=== PATIENT | female | born 1945 | race Caucasian/White ===

== ENCOUNTER 2016-06-24 11:17 | Inpatient (IN) | payer OTHER ==
[~2016-06-24] VITALS: Ht 170.2 cm; Wt 149.7 kg
[2016-06-24 11:17] VITALS: BP 156/79
[~2016-06-24 11:17] MED LIST: ACET-9529 PO; AMPI500C49 PO; DOCU-67 PO; FURO-570 PO; HUM SUBQ; ISOS10TA9 PO; LAC PO; LISI10TA11 PO
--- NOTE | 2016-06-24 11:20 | NUR ---
1109--Patient was BIBA and taken to bed 03 via gurney per EMS. [place] [facility] at bedside.
--- NOTE | 2016-06-24 11:35 | NUR ---
BIBA DUE TO S/P FALL FROM HOME AND PT VERBALIZED I CANNT GET UP AND I HAVE WEAKNESS ON MY BOTH LEGS , PT AAO, PER PT SHE HAS HX DM, NEUROPATHY, SKIN WARM TO TOUCH RESP. EVEN AND UNLABORED, ON NON REBREATHER MASK O2 SAT 94 AT THIS TIMRE WITH O2, NOTED DRESSING ON BOTH LEGS, DENIES VOMITTING, FEVER, CP, PER PT SHE IS COUGHING AT HOME X2 WEEKS, NO PAIN NOTED AT THIS TIME.
--- NOTE | 2016-06-24 11:44 | NUR ---
Dr. Natarajan evaluating patient at bedside.
--- NOTE | 2016-06-24 11:55 | NUR ---
RT at bedside for ABG
[2016-06-24] MEDS ORDERED: NACL 0.9% 500 ML IV SCH (12:04)
--- NOTE | 2016-06-24 12:04 | NUR ---
NOTED REDNESS ON LEFT UNDER BREAST CLEANSE WITH WATER AND PAT DRY AND PUT DRY PILLOW CASE IN BETWEEN BREAST FOLDS, NOTED ALSO INTACT BLISTER ON BOTH RIGHT AND LEFT LEG AND NOTED BLANCHABLE REDNESS ON BOTH LEGS
[2016-06-24] MEDS ORDERED: LEVOFLOXACIN 500 MG/D5W PREMIX 100 ML IV ONE (12:05)
[2016-06-24] MEDS ORDERED: NACL 0.9% 500 ML IV ONE (12:05)
[2016-06-24] MEDS ORDERED: ALBUTEROL 0.083% 2.5 MG/3 ML NEBU INH ONE ×2 (12:10→14:20)
[2016-06-24] MEDS ORDERED: methylPREDNISolone SS 125 MG/2 ML VIAL IVP ONE (12:10)
[2016-06-24] MEDS ORDERED: IPRATROPIUM 0.02% 0.5 MG/2.5 ML NEBU INH ONE (12:10)
--- NOTE | 2016-06-24 12:10 | NUR ---
LAB AT BEDSIDE
--- NOTE | 2016-06-24 12:17 | NUR ---
ADMITTING DX: GENERALIZED WEAKNESS LOC AWAKE AND ALERT RESPONSIVE TO PHARMACY TEACHER VERBAL COMMANDS HOB GREATER THAN 30 DEGREES EDUCATION PROVIDED WITH ACKNOWLEDGEMNET ON HHN THERAPY AND RESPIRATORY DRUGS HHN THERAPY GIVEN ORDERED ENCORAGED DEEP BREATH AND COUGH DURING THERAPY SPONTANEOUS EXPECTORATION OF MODERATE THICK YELLOW/GREEN SECRETIONS TOLERATED HHN THERAPY WELL WITHOUT INCIDENT
--- NOTE | 2016-06-24 12:19 | NUR ---
XRAY AND RT AT BEDSIDE
[2016-06-24 12:25] LABS: BASOPHILS # (AUTO) 0.2 K/uL (0.00-0.22); BASOPHILS % (AUTO) 0.9 % (0.0-2.0); EOSINOPHILS # (AUTO) 0.2 K/uL (0-0.4); EOSINOPHILS % (AUTO) 0.9 % (0.0-4.0); HEMATOCRIT 26.4 % (36-48); HEMOGLOBIN 8.3 g/dL (12.0-16.0); LYMPHOCYTES # (AUTO) 1.4 K/uL (2.5-16.5); LYMPHOCYTES % (AUTO) 7.8 % (20.5-51.1); MEAN CORPUSCULAR HEMOGLOBIN 26 pg (27-31); MEAN CORPUSCULAR HGB CONC 32 g/dL (33-37); MEAN CORPUSCULAR VOLUME 81 fL (80-94); MONOCYTES # (AUTO) 0.9 K/uL (0.8-1.0); MONOCYTES % (AUTO) 4.8 % (1.7-9.3); NEUTROPHILS # (AUTO) 15.3 K/uL (1.8-7.7); NEUTROPHILS % (AUTO) 85.6 % (42.2-75.2); PLATELET COUNT (AUTO) 314 K/uL (140-450); RED BLOOD CELL COUNT(AUTO) 3.25 MIL/uL (4.20-5.40); RED CELL DISTRIBUTION WIDTH 16.7 % (11.6-13.7)
--- NOTE | 2016-06-24 12:25 | NUR ---
SPUTM COLLECTION IN PROGRESS Addendum: 06/24/16 at 1437 by JAIME Amendment undone in EDM - 06/24/16 at 1439 by JAIME SONNY/RODOLFO MADE AWARE OF SPUTUM SPECIMEN CUP WITH SAMPLE IN PATIENT'S RIGHT HAND Addendum: 06/24/16 at 1439 by JAIME SONNY/RODOLFO MADE AWARE WITH ACKNOWLEDGEMENT OF SPUTUM SPECIMEN CUP WITH SAMPLE IN PATIENT'S RIGHT HAND
--- NOTE | 2016-06-24 12:35 | NUR ---
POST HHN THERAPY TITRATED FIO2 TO 50%/15 LPM VIA VENTURI MASK SATURATION 96%-97% DR. JOHANN CAZARES NOTIFIED
[2016-06-24 12:41] LABS: LACTIC ACID 1.6 mmol/L (0.4-2.0)
--- NOTE | 2016-06-24 12:42 | NUR ---
FAMILY AT BEDSIDE, TALKING TO PT, PT AAO, ON O2 VIA FACE MASK AT 35% O2 SAT 98
[2016-06-24 12:48] LABS: BLOOD GAS PCO2 53.3 mmHg (20-50); BLOOD GAS PH 7.379 (7.35-7.45)
[2016-06-24 12:49] LABS: BLOOD GAS BASE EXCESS 4.8 mmol/L (-2.0-2.0); BLOOD GAS HCO3 30.8 mmol/L
[2016-06-24 12:50] LABS: BLOOD GAS O2 SAT% 80.5 % (92.0-98.5)
[2016-06-24 12:52] LABS: INR 1.4 (0.8-1.2); PARTIAL THROMBOPLASTIN TIME 27.6 secs (22-35.6)
--- NOTE | 2016-06-24 12:58 | NUR ---
NOTED BLANCHABLE REDNESS ON BOTH GROIN, CLEANSE WITH WATER, NOTED FOUL ODOR COMING FROM UNDER BREAST AND BOTH GROIN, PT AAO.
[2016-06-24] MEDS ORDERED: ONDANSETRON 4 MG/2 ML VIAL IVP PRN (13:00)
[2016-06-24] MEDS ORDERED: ACETAMINOPHEN 325 MG TAB PO PRN (13:00)
[2016-06-24] MEDS ORDERED: MORPHINE SULFATE 2 MG/ML SYR IVP PRN (13:00)
[2016-06-24] MEDS ORDERED: DOCUSATE SODIUM 100 MG GELCAP PO PRN (13:00)
[2016-06-24 13:17] LABS: ALBUMIN 2.5 g/dL (3.4-5.0); ANION GAP 10.7 (8-16); CALCIUM 8.8 mg/dL (8.5-10.1); CARBON DIOXIDE 32.4 mmol/L (21-32); CREATININE 1.6 mg/dL (0.6-1.3); POTASSIUM 4.1 mmol/L (3.5-5.1); TOTAL BILIRUBIN 0.5 mg/dL (0.0-1.0); TOTAL PROTEIN, SERUM 7.1 g/dL (6.4-8.2)
--- NOTE | 2016-06-24 13:54 | NUR ---
DR. CAZARES AWARE OF THE RESULT OF URINE DIPSTICK AND PREG
[2016-06-24 14:09] LABS: BILIRUBIN,URINE 1+ (NEGATIVE); BLOOD, URINE 3+ (NEGATIVE); COLOR,URINE YELLOW (YELLOW); LEUKOCYTE ESTERASE ,URINE NEGATIVE (NEGATIVE); NITRITE, URINE NEGATIVE (NEGATIVE); PH,URINE 5.5 (5.0-9.0); PROTEIN,URINE 3+ (NEGATIVE); UGLUCOSE TRACE (NEGATIVE)
[2016-06-24 14:12] LABS: APPEARANCE,URINE CLEAR (CLEAR)
[2016-06-24 14:21] LABS: AMPHETAMINE, URINE NEG. ng/ml (NEG <=1000); BARBITURATE, URINE NEG. ng/ml (NEG <=200); BENZODIAZEPINE, URINE NEG. ng/mL (NEG <=200); CANNABINOID, URINE NEG. ng/mL (NEG <=50); COCAINE, URINE NEG. ng/mL (NEG <=300); OPIATE, URINE NEG. ng/mL (NEG <=2000); PHENCYCLIDINE SCREEN,URINE NEG. ng/mL (NEG <=25)
[2016-06-24 14:22] LABS: BACTERIA,URINE 2+ /HPF (None Seen); RBC,URINE 3-10 (FEW) /HPF (0-5); WBC,URINE 0-5 (RARE) /HPF (0-5); YEAST,URINE Moderate /HPF (None Seen)
--- NOTE | 2016-06-24 14:35 | NUR ---
RT AT BEDSIDE.
[2016-06-24 14:41] LABS: CHOL/HDL RATIO 5.1 (1-4.5); MAGNESIUM 1.9 mg/dL (1.8-2.4); PHOSPHORUS 3.4 mg/dL (2.5-4.9)
--- NOTE | 2016-06-24 14:45 | NUR ---
ORDERS SUBMITTED TO RESPIRATORY DEPT BY DR. TERRENCE DO (RES) AT 1311 ROOM 123-B PATIENT REMAINS IN ER-3 VALIDATED BY MANUEL/REJI REYNOLDS
--- NOTE | 2016-06-24 14:50 | NUR ---
talked to dr. zimmerman made aware bs 258, said just give 6 units subq
[2016-06-24] MEDS: INSULIN ASPART SLIDING SCALE 100 UNITS/ML VIAL SUBQ PRN ×2 (14:52→17:55)
--- NOTE | 2016-06-24 15:00 | NUR ---
REPORT GIVEN TO TRI IN TELE
[2016-06-24 15:04] LABS: THYROID STIMULATING HORMONE 2.23 uIU/mL (0.34-3.76)
[2016-06-24 15:30] VITALS: BP 138/62
[2016-06-24] MEDS: NACL 0.9% 1,000 ML IV SCH ×2 (15:30→23:25)
--- NOTE | 2016-06-24 15:30 | NUR ---
PATIENT ARRIVED TO THE UNIT VIA GURNEY. PATIENT AWAKE, ALERT AND ORIENTED. LABORED BREATHING NOTED. PATIENT ON 15L O2 WITH 50% FIO2. O2 SATURATION AT 98%. SKIN IS INTACT BUT REDNESS AND SWELLING NOTED TO BLE. DRYNESS TO BOTH FEET. PATIENT HAS REDNESS TO HER BREAST FOLDS, GROIN AREA AND INNER THIGH. IV LINE NOTED TO THE LEFT HAND, INTACT WITH IVF INFUSING WELL. DONAHUE CATHETER IN PLACE, DRAINING CLEAR YELLOW URINE. PATIENT PLACED ON TELE MONITORING. BED LOWERED WITH CALL LIGHT WITHIN REACH. WILL CONTINUE TO MONITOR
[2016-06-24 16:00] VITALS: BP 125/62
[2016-06-24] MEDS ORDERED: PNEUMOCOCCAL VACCINE 23 MCG/0.5 ML VIAL IMVAC SCH (16:30)
[2016-06-24] MEDS ORDERED: INFLUENZA VIRUS VACCINE QUAD 0.5 ML SYR IMVAC PRN (16:30)
[2016-06-24] MEDS: BLOOD GLUCOSE MONITORING 1 DEV DEV FS SCH ×2 (16:32→21:00)
[2016-06-24] MEDS: ALBUTEROL SULFATE/IPRATROPIU 3 ML SOL IH SCH ×3 (16:54→23:16)
--- NOTE | 2016-06-24 17:05 | NUR ---
AWAKE AND ALERT RESPONSIVE SATURATION 99% ON SUPPLEMENTAL OXYGEN AT 15 LPM VIA VENTI MASK AT 50% POST HHN THERAPY TITRATED FIO2 TO 40%/12 LPM TRI/RN NOTIFIED
[2016-06-24] MEDS: CLINDAMYCIN 300 MG in DEXTROSE 5% 50 ML IV SCH ×2 (17:25→23:43)
[2016-06-24] MEDS: ISOSORBIDE DINITRATE 10 MG TAB PO SCH (17:26)
--- NOTE | 2016-06-24 18:00 | NUR ---
PATIENT REQUESTED TO BE PUT ON NASAL CANNULA SO SHE CAN HAVE DINNER. PATIENT ON 4L O2 O2 SAT AT 96%. WILL CONTINUE TO MONITOR
--- NOTE | 2016-06-24 19:38 | NUR ---
PATIENT REPORT GIVEN AT BEDSIDE. PATIENT ENDORSED IN STABLE CONDITION
--- NOTE | 2016-06-24 19:40 | NUR ---
RECEIVED PT TRI RN PT MORBID OBESITY AAOX4 ON 06 01 LTS VIA NC, ON TELMETRY ATRIAL FLUTTER BLE CELLULITIS, REDNESS ON ABDOMINAL FOLDS, , PERINEAL AREAS AND UNDER LEFT BREAST IV ON LEFT HAND INFUSING WELL PT REPOSITIONED INITIAL ASSESSMENT DONE
[2016-06-24 20:00] VITALS: BP 134/54
--- NOTE | 2016-06-24 20:32 | NUR ---
FOUND PT ON NC 3 L SAT 92%. HHN TX GIVEN. CHANGED PT TO OXIMIZER 3 L SAT 94%.
--- NOTE | 2016-06-24 21:30 | NUR ---
GOT A CALL FROM RN THAT PATIENTS DOESNT WANT OXIMIZER OR NC AND WANTS THE VENTI MASK BACK ON. PT IS ON VENTI MASK 35% FIO2 AND SAT IS 95%.
--- NOTE | 2016-06-24 21:30 | NUR ---
BLOOD SUGAR TEST 407 DR GUILLORY WAS CALLED AND ORDER TO FOLLOW
[2016-06-24] MEDS: SACCHAROMYCES 250 MG CAP PO SCH (21:46)
[2016-06-24] MEDS ORDERED: INSULIN ASPART, RECOMBINANT 100 UNITS/ML VIAL SUBQ SCH (22:00)
--- NOTE | 2016-06-24 22:00 | NUR ---
PT ON VENTI MASK SHE REFUSE OXIMYZER, RESP THERAPY HERE ASSISTING THE PT ON TELMETRY ATRIAL FLUTTER
[2016-06-25] VITALS: BP 130/60
--- NOTE | 2016-06-25 01:00 | NUR ---
AFTER LLPAIN MEDIC GIVEN PT SLEEP QUIET NOT RESP DISTRESS REPOSITIONE
[2016-06-25 04:00] VITALS: BP 139/67
--- NOTE | 2016-06-25 04:00 | NUR ---
SPONGE BATH GIVEN LINEN CHANGED INTERDRY ON ALL ABD FOLDING AND PERINEAL FOLDING AND LEFT UNDER BREAST
[2016-06-25] MEDS: CLINDAMYCIN 300 MG in DEXTROSE 5% 50 ML IV SCH ×4 (05:34→23:30)
[2016-06-25] MEDS: NACL 0.9% 1,000 ML IV SCH ×3 (05:34→16:41)
[2016-06-25 06:32] LABS: BASOPHILS % (AUTO) 0.1 % (0.0-2.0); EOSINOPHILS # (AUTO) 0.2 K/uL (0-0.4); EOSINOPHILS % (AUTO) 1.3 % (0.0-4.0); HEMATOCRIT 26.8 % (36-48); HEMOGLOBIN 8.3 g/dL (12.0-16.0); LYMPHOCYTES # (AUTO) 0.8 K/uL (2.5-16.5); LYMPHOCYTES % (AUTO) 4.5 % (20.5-51.1); MEAN CORPUSCULAR HEMOGLOBIN 25 pg (27-31); MEAN CORPUSCULAR HGB CONC 31 g/dL (33-37); MEAN CORPUSCULAR VOLUME 82 fL (80-94); MONOCYTES # (AUTO) 0.6 K/uL (0.8-1.0); MONOCYTES % (AUTO) 3.5 % (1.7-9.3); NEUTROPHILS # (AUTO) 15.8 K/uL (1.8-7.7); NEUTROPHILS % (AUTO) 90.6 % (42.2-75.2); PLATELET COUNT (AUTO) 299 K/uL (140-450); RED BLOOD CELL COUNT(AUTO) 3.26 MIL/uL (4.20-5.40); RED CELL DISTRIBUTION WIDTH 16.9 % (11.6-13.7)
[2016-06-25] MEDS: INSULIN ASPART SLIDING SCALE 100 UNITS/ML VIAL SUBQ PRN ×4 (06:39→20:37)
[2016-06-25] MEDS: BLOOD GLUCOSE MONITORING 1 DEV DEV FS SCH ×4 (06:44→20:36)
--- NOTE | 2016-06-25 06:44 | NUR ---
BLOOD SUGAR TEST 390 COVERAGE WITH10 UNITS REG INSULIN
[2016-06-25 07:01] LABS: ANION GAP 11.7 (8-16); CALCIUM 8.5 mg/dL (8.5-10.1); CARBON DIOXIDE 29.9 mmol/L (21-32); CREATININE 1.9 mg/dL (0.6-1.3); POTASSIUM 4.6 mmol/L (3.5-5.1)
[2016-06-25 07:19] LABS: WHITE BLOOD COUNT (AUTO) 17.4 K/uL (4.8-10.8)
--- NOTE | 2016-06-25 07:30 | NUR ---
RECEIVED PT RESTING IN BED, AAOX4, ABLE TO VERBALIZE NEEDS; NO COMPLAINTS OF PAIN, SOB, OR S/S ACUTE DISTRESS AT THIS TIME. RESPIRATIONS EVEN AND UNLABORED ON O2@9L VIA SIMPLE MASK, SaO2 96%. ROUTINE/PLAN OF CARE DISCUSSED AND REVIEWED, PT VERBALIZES UNDERSTANDING AND COMPLIANCE. IVF INFUSING WELL TO LEFT HAND, SITE ASYMPTOMATIC. SAFETY PRECAUTIONS OBSERVED AND MAINTAINED. ENCOURAGED TO CALL FOR ASSISTANCE NEEDED. O2 Secure Wireless TECH AT BEDSIDE FOR CAROTID STUDY. Addendum: 06/25/16 at 1235 by Melissa Jones RN ADD TO ENTRY: DONAHUE CATH PATENT AND DRAINING BY GRAVITY, CLEAR YELLOW URINE NOTED.
--- NOTE | 2016-06-25 07:58 | NUR ---
PATIENT HAS BEEN SCREENED AND CATEGORIZED HIGH NUTRITION RISK. PATIENT WILL BE SEEN WITHIN 1-2 DAYS OF ADMISSION. 06/25/16-06/26/[address]
[2016-06-25 08:00] VITALS: BP 154/73
[2016-06-25] MEDS ORDERED: FUROSEMIDE 40 MG TAB PO SCH (09:00)
[2016-06-25] MEDS: LISINOPRIL 10 MG TAB PO SCH (09:09)
[2016-06-25] MEDS: SACCHAROMYCES 250 MG CAP PO SCH ×2 (09:09→20:27)
[2016-06-25] MEDS: ISOSORBIDE DINITRATE 10 MG TAB PO SCH ×3 (09:10→16:47)
[2016-06-25] MEDS: LEVOFLOXACIN 750 MG/D5W PREMIX 150 ML IV SCH (09:13)
[2016-06-25] MEDS ORDERED: POTASSIUM CHLORIDE 10 MEQ TABER PO ONE (09:15)
--- NOTE | 2016-06-25 09:15 | NUR ---
PLACED PT ON O2@6L VIA NC WHILE EATING, SaO2 96%. VSS. ADMINISTERED ROUTINE MEDS ORDERED WITH EDUCATION, PT TOLERATED WELL. RT AT BEDSIDE FOR EVAL. WILL CONTINUE TO MONITOR.
[2016-06-25] MEDS: guaiFENesin DM 200/20 MG-10 ML 10 ML UDC PO PRN ×2 (09:37→16:41)
--- NOTE | 2016-06-25 09:40 | NUR ---
SaO2 99% ON O2@6L/MIN VIA OXIMIZER PLACED BY RT. PT EXPERIENCING PERSISTENT MOIST COUGH, NOTIFIED DR BRYANT; SHIRIN DM GIVEN ORDERED. WILL CONTINUE TO MONITOR PT.
--- NOTE | 2016-06-25 11:15 | NUR ---
FAXED INITIAL REVIEW TO [facility] [phone] PHONE IRENE [phone]
--- NOTE | 2016-06-25 11:45 | NUR ---
TOTAL CARE GIVEN, GOWN AND LINEN CHANGED. APPLIED INTERDRY TO ABD AND BREAST FOLDS. EDUCATED PT, PT TOLERATED WELL AND VERBALIZES UNDERSTANDING. VSS. P.T. AT BEDSIDE FOR EVAL.
[2016-06-25 12:00] VITALS: BP 130/59
[2016-06-25 16:00] VITALS: BP 114/53
--- NOTE | 2016-06-25 17:05 | NUR ---
PT EVALUATED BY DR GONZALEZ AT BEDSIDE, DISCUSSED PT CONDITION AND PLAN OF CARE. NEW ORDERS ACKNOWLEDGED AND CARRIED OUT. DECREASED IVF TO 60ML/HR. PT TOLERATING O2@3L/MIN VIA NC OXIMIZER, SaO2 96-97%.
--- NOTE | 2016-06-25 18:00 | NUR ---
SaO2 97%, CONDITION STABLE.
[2016-06-25] MEDS ORDERED: FLUCONAZOLE 100 MG TAB PO SCH (19:00)
--- NOTE | 2016-06-25 19:16 | NUR ---
ENDORSED PLAN OF CARE TO PLSQL DEVELOPER RN.
--- NOTE | 2016-06-25 19:30 | NUR ---
RECEIVED REPORT FROM CONCHITA REYNOLDS AT BEDSIDE. PT IS ALERT AWAKE ORIENTED X4. INITIAL ASSESSMENT DONE. NO S/S OF RESPIRATORY DISTRESS OR SOB NOTED. ON O2 @ 5L/MIN VIA OXIMIZER AND TOLERATED WELL. NO C/O PAIN OR ANY DISCOMFORT AT THIS TIME. PLAN OF CARE REVIEWED TO PT AND VERBALIZED UNDERSTANDING. CALL LIGHT WITHIN REACH. WILL CONTINUE TO MONITOR.
[2016-06-25 20:00] VITALS: BP 116/53
[2016-06-25] MEDS: METOPROLOL 25 MG TAB PO SCH (20:28)
[2016-06-25] MEDS: FUROSEMIDE 20 MG/2 ML VIAL IVP SCH (20:35)
--- NOTE | 2016-06-25 21:18 | NUR ---
BIPAP IS SETUP AND READY TO USE, BIPAP IS PLUGGED INTO RED OUTLET. SETTINGS 12/6 , 14, 35% PER DOCTORS ORDERS. MASK SIZE LARGE. ALARMS AUDIBLE. I PUT PT ON IT AND THEN PT TOTALLY REFUSED TO HAVE BIPAP ON. I EXPLAINED TO PATIENT HOW IMPORTANT SHE NEEDS TO HAVE BIPAP ON SHE DESATS WHEN SHE SLEEPS. PATIENT STILL REFUSING TO WEAR IT. RODOLFO PURVIS AND METERS SUPERINTENDENT AT BEDSIDE. PT STATED SHE DOES NOT WANT TO GET INTUBATED IF SHE STOPPED BREATHING. RODOLFO PURVSI AND METERS SUPERINTENDENT GARY AT BEDSIDE. PT IA BACK ON OXIMIZER SAT 97%. WILL CONTINUE TO MONITOR.
--- NOTE | 2016-06-25 21:44 | NUR ---
DR OCAMPO SPOKE WITH PT ABOUT WEARING BIPAP. RODOLFO PURVIS AND OUTSIDE OPERATOR GARY AT BEDSIDE. PT AGREED OF NOW. BIPAP IS BACK ON. WILL CONTINUE TO MONITOR.
--- NOTE | 2016-06-25 22:00 | NUR ---
PT TOOK OFF THE BIPAP MACHINE AGAIN DESPITE EXPLAINING THE RISKS AND BENEFITS OF IT. RT ROUSE AND DR. OCAMPO AT BEDSIDE MADE AWARE. CHARGE NURSE PAT AND GARY MOTOR TESTER MADE AWARE.
--- NOTE | 2016-06-25 22:11 | NUR ---
GOT A CALL FROM YANIV REYNOLDS THAT PT IS REFUSING BY BIPAP AND TOOK MASK OFF. PT IS BACK ON OXIMIZER 5 L.
[2016-06-26] VITALS: BP 114/55
--- NOTE | 2016-06-26 00:20 | NUR ---
PT IS SLEEPING RIGHT NOW BUT EASILY AROUSABLE. NO S/S OF ANY DISCOMFORT AT THIS TIME. ALL NEEDS ARE ATTENDED CALL LIGHT WITHIN REACH. WILL CONTINUE TO MONITOR.
[2016-06-26 04:00] VITALS: BP 113/56
--- NOTE | 2016-06-26 05:00 | NUR ---
AM CARE RENDERED. BED LINEN CHANGED. INSTRUCTED PT TO REPOSITION. KEPT CLEAN AND DRY. CALL LIGHT WITHIN REACH. WILL CONTINUE TO MONITOR.
[2016-06-26] MEDS: CLINDAMYCIN 300 MG in DEXTROSE 5% 50 ML IV SCH ×3 (05:02→17:43)
[2016-06-26 06:37] LABS: HEMATOCRIT 25.9 % (36-48); HEMOGLOBIN 8.2 g/dL (12.0-16.0); MEAN CORPUSCULAR HEMOGLOBIN 26 pg (27-31); MEAN CORPUSCULAR HGB CONC 32 g/dL (33-37); MEAN CORPUSCULAR VOLUME 81 fL (80-94); PLATELET COUNT (AUTO) 373 K/uL (140-450); RED CELL DISTRIBUTION WIDTH 16.6 % (11.6-13.7); WHITE BLOOD COUNT (AUTO) 22.1 K/uL (4.8-10.8)
[2016-06-26 06:49] LABS: ANION GAP 7.2 (8-16); CALCIUM 8.2 mg/dL (8.5-10.1); CARBON DIOXIDE 32.7 mmol/L (21-32); CREATININE 2.1 mg/dL (0.6-1.3); POTASSIUM 4.9 mmol/L (3.5-5.1)
[2016-06-26 07:07] LABS: BAND % (MANUAL) 4 % (0-8); LYMPHOCYTES % (MANUAL) 6 % (20-46); MONOCYTES % (MANUAL) 6 % (5-12); NEUTROPHILS % (MANUAL) 84 (43-65)
[2016-06-26] MEDS: ALBUTEROL SULFATE/IPRATROPIU 3 ML SOL IH PRN ×2 (07:19→10:56)
--- NOTE | 2016-06-26 07:20 | NUR ---
PT REFUSES BIPAP IS ALERT RECEIVED ON 5 L OXYMIZER CHANGED TO 35% VENTURI POS T HHN SPO2 95
--- NOTE | 2016-06-26 07:23 | NUR ---
PT HAS NO S/S OF ANY DISCOMFORT. PLAN OF CARE ENDORSED TO TRI GLEZ RN AT BEDSIDE FOR CONTINUITY OF CARE.
--- NOTE | 2016-06-26 07:23 | NUR ---
RECEIVED PATIENT REPORT. PATIENT AWAKE, ALERT AND ORIENTED. PATIENT RECEIVING 5L O2 VIA OXYMIZER. O2 SATURATION AT 100%. PATIENT C/O OF SOB. DIMINISHED BREATH SOUNDS NOTED. PATIENT ABOUT TO RECEIVE BREATHING TX. DONAHUE CATHETER IN PLACE. IV LINE TO THE LEFT HAND INTACT WITH IVF INFUSING WELL. PATIENT ON TELE MONITORING. BED LOWERED WITH CALL LIGHT WITHIN REACH. WILL CONTINUE TO MONITOR.
[2016-06-26] MEDS: BLOOD GLUCOSE MONITORING 1 DEV DEV FS SCH ×4 (07:30→21:01)
--- NOTE | 2016-06-26 07:55 | NUR ---
PATIENT RECEIVED BREATHING TX. PATIENT NOW ON 9L O2 VIA OXYMIZER WITH 35% FIO2. O2 SAT AT 95%. WILL CONTINUE TO MONITOR
[2016-06-26 08:00] VITALS: BP 120/53
[2016-06-26 08:47] LABS: BLOOD GAS PH 7.284 (7.35-7.45)
[2016-06-26 08:48] LABS: BLOOD GAS BASE EXCESS 0.8 mmol/L (-2.0-2.0); BLOOD GAS O2 SAT% 89.6 % (92.0-98.5); BLOOD GAS PCO2 60.5 mmHg (20-50); BLOOD GAS PO2 60.4 mmHg
--- NOTE | 2016-06-26 08:53 | NUR ---
RTS KADY AMADO AND AILEEN AMAYA AND RODOLFO BARTLETT PRESENT PT REFUSES BIPAP POST ABG RESULTS DR WOODRUFF NOTIFIED Addendum: 06/26/16 at 0859 by Kady Amado RT PT ON 2L N/C
--- NOTE | 2016-06-26 08:53 | NUR ---
ABG RESULTS REPORTED TO DR WOODRUFF
[2016-06-26] MEDS: ISOSORBIDE DINITRATE 10 MG TAB PO SCH ×3 (09:31→17:00)
[2016-06-26] MEDS: METOPROLOL 25 MG TAB PO SCH ×2 (09:31→21:03)
[2016-06-26] MEDS: SACCHAROMYCES 250 MG CAP PO SCH ×2 (09:31→21:02)
[2016-06-26] MEDS: FAMOTIDINE 20 MG TAB PO SCH (09:32)
[2016-06-26] MEDS: LISINOPRIL 10 MG TAB PO SCH (09:32)
[2016-06-26] MEDS: FUROSEMIDE 20 MG/2 ML VIAL IVP SCH ×2 (09:33→21:02)
[2016-06-26] MEDS: INSULIN ASPART SLIDING SCALE 100 UNITS/ML VIAL SUBQ PRN ×2 (09:49→12:38)
[2016-06-26] MEDS: NACL 0.9% 1,000 ML IV SCH (09:50)
--- NOTE | 2016-06-26 09:53 | NUR ---
PATIENT ON 2L O2 VIA NC. O2 SAT 94%. PATIENT SLEEPING
--- NOTE | 2016-06-26 10:57 | NUR ---
PATIENT PUT ON BIPAP. 02 SAT AT 98%. PATIENT SLEEPING
--- NOTE | 2016-06-26 10:57 | NUR ---
PT REQUEST BIPAP PLACED ST 12\6 RR14 FIO2 30 ALARMS ARE ON AND FUNCTIONAL APNEA SET AT 20 SECONDS BIPAP PLUGGED INTO RED OULET PT IN HF AWAKE WEARING F\F MASK GEL UNDER MASK I\L HHN GIVEN WITH 3 MG DUONEB BS DIMINISHED O2 2L ON AT BEDSIDE
--- NOTE | 2016-06-26 11:28 | NUR ---
CM NOTE CONCURRENT REVIEW SENT TO [facility] FAX#[phone] PH# [phone] ATTN: IRENE MARTINEZ [id number]
--- NOTE | 2016-06-26 11:59 | NUR ---
PATIENT WOKE UP AND REQUESTS TO BE TAKEN OFF THE BIPAP. PATIENT PLACED ON 2L O2 VIA NC. O2 SAT 91%. WILL CONTINUE TO MONITOR
[2016-06-26 12:00] VITALS: BP 106/48
--- NOTE | 2016-06-26 12:03 | NUR ---
PATIENT O2 SAT DROPPED TO 89. O2 INCREASED TO 4L. O2 SATURATION AT 93%. WILL CONTINUE TO MONITOR
--- NOTE | 2016-06-26 12:57 | NUR ---
PATIENT ON 2L O2 VIA NC. O2 SATURATION AT 95%. WILL CONTINUE TO MONITOR
--- NOTE | 2016-06-26 13:52 | NUR ---
06/26/16 RD INITIAL ASSESSMENT COMPLETED PLEASE REFER TO NUTRITION ASSESSMENT UNDER CARE ACTIVITY FOR ESTIMATED NUTRITIONAL NEEDS. RD RECOMMENDATIONS: 1. CONTINUE CCHO 60 GM DIET TOLERATED PER MD 2. ENCOURAGE INCREASED PO INTAKES 3. PLEASE EDUCATE PT ON REQUESTING FOODS OUTSIDE OF DIET ORDER D/T PT WITH ELEVATED GLUCOSE LEVELS 4. RD WILL F/U 3-5 DAYS; MODERATE RISK. EBEN SUTTON RD
--- NOTE | 2016-06-26 14:47 | NUR ---
MADE DR ESPITIA AWARE OF PATIENT PCO2 LEVEL. PATIENT SEEN BY DR ESPITIA. PATIENT PUT BACK ON THE BIPAP
--- NOTE | 2016-06-26 15:00 | NUR ---
SCHEDULED MEDICATION NOT ADMINISTERED. PATIENT TOO LETHARGIC TO SWALLOW.
--- NOTE | 2016-06-26 15:14 | NUR ---
PT ON BIPAP WITH PREVIOUS SETTINGS PT ASLEEP IN HF GEL UNDER MASK
[2016-06-26 16:00] VITALS: BP 126/59
--- NOTE | 2016-06-26 17:00 | NUR ---
PATIENT TOOK OFF HER BIPAP TO BLOW HER NOSE AND TO DRINK WATER. PATIENT INSTRUCTED TO USE THE CALL LIGHT BEFORE TAKING OFF HER BIPAP. PATIENT PUT BACK AGAIN ON HER BIPAP
--- NOTE | 2016-06-26 17:13 | NUR ---
BIPAP CHECK GEL UNDER MASK PT ASLEEP IN HF BS DIMINISHED
--- NOTE | 2016-06-26 17:15 | NUR ---
PATIENT TAKES OFF HER BIPAP AGAIN WITHOUT CALLING FOR HELP. PATIENT STATES THAT SHE COULDNT BREATH WHILE ON THE MACHINE. O2 SATURATION AT 94% ON BIPAP. PATIENT TOLD THAT THE BIPAP HELPS HER BREATH. PATIENT PUT BACK ON BIPAP.
--- NOTE | 2016-06-26 17:20 | NUR ---
PATIENT ADAMANT ON BEING OFF BIPAP AND STARTS TO SHOUT AND GET ANGRY. PATIENT TAKEN OFF BIPAP AND PUT ON 2L O2 VIA NC. O2 SAT AT 92%. WILL CONTINUE TO MONITOR
--- NOTE | 2016-06-26 17:48 | NUR ---
BLOOD SUGAR 192. INSULIN NOT ADMINISTERED. PATIENT UNABLE TO EAT AT THIS MOMENT
--- NOTE | 2016-06-26 18:10 | NUR ---
PATIENT SEEN BY DR ESPITIA. PATIENT TOLD BY THE DR THAT SHE NEEDS TO BE ON THE BIPAP AND EXPLAINED TO THE PATIENT THAT HER CO2 LEVELS ARE RISING BECAUSE SHE IS NOT VENTILATING WELL. PATIENT INSISTED TO BE OFF OF THE BIPAP. DR ALSO DISCUSSED WITH THE PATIENT HER CODE STATUS
--- NOTE | 2016-06-26 18:30 | NUR ---
PATIENT STATES SHE CAN NOT BREATH. PATIENT AGREED TO BE ON THE BIPAP
[2016-06-26] MEDS ORDERED: INTERDRY CLOTH TP PRN (18:40)
[2016-06-26] MEDS ORDERED: INTERDRY CLOTH TP SCH (18:40)
[2016-06-26] MEDS ORDERED: NYSTATIN POW 100 MU/GM 15 GM BTL TP PRN (18:40)
[2016-06-26] MEDS ORDERED: MILD SOAP AND WATER TP SCH (18:40)
--- NOTE | 2016-06-26 19:06 | NUR ---
PATIENT REPORT GIVEN AT BEDSIDE. PATIENT REQUESTED TO BE OFF THE BIPAP. PATIENT PLACED ON 2L O2 VIA NC. O2 SATURATION AT 94%
--- NOTE | 2016-06-26 19:20 | NUR ---
RECEIVED REPORT FROM DAY RN AT BEDSIDE, PATIENT IS SITTING UP IN BED, PATIENT IS AAOX4 HAS AN ORDER FOR BIPAP BUT PATIENT KEEPS REMOVING IT. NASAL CANNULA APPLIED AT 2L, PATIENT IS MOANING AND APPEARS LETHARGIC. PATIENT HAS IV TO LH 22G PATENT AND INTACT. NOTED BANDAGES TO BILATERAL LOWER EXTREMITIES FOR CELLULITIS, DRY AND INTACT. DISCUSSED PLAN OF CARE WITH PATIENT, PATIENT VERBALIZED UNDERSTANDING, SAFETY MEASURES CHECKED, CALL LIGHT WITHIN REACH. WILL CONTINUE TO MONITOR
[2016-06-26 20:00] VITALS: BP 139/68
[2016-06-26] MEDS ORDERED: cefTRIAXone 1,000 MG VIAL ONE (20:50)
[2016-06-26] MEDS: methylPREDNISolone SS 40 MG/ML VIAL IVP SCH (21:02)
--- NOTE | 2016-06-26 21:24 | NUR ---
PM MEDS ADMINISTERED, PATIENT TOLERATED WELL, PATIENT SITTING UP IN BED, FALLING ASLEEP, NO SIGN OF DISTRESS, CALL LIGHT WITHIN REACH. WILL CONTINUE TO MONITOR.
--- NOTE | 2016-06-26 22:30 | NUR ---
PATIENT FREQUENTLY YELLING FOR HELP, PATIENT STATES SHE "WANTS MORE AIR" PATIENT SATS AT 95% ON 2L NC, EXPLAINED TO PATIENT SHE CAN HAVE BI PAP APPLIED, PATIENT REFUSES. APPLIED PILLOWS TO PATIENT'S BACK TO SIT HER UP MORE. CALL LIGHT WITHIN REACH. WILL CONTINUE TO MONITOR
--- NOTE | 2016-06-26 23:10 | NUR ---
PT SCREAMING THAT SHE CAN NOT BREATH, I OFFER THE BIPAP OR TX HHN, PT WAS SAYING THAT SHE WANTS TO SET TO THE EDGE OF THE BED. NURSE NOTIFIED THAT SHE DENIED HHN AND BUPAP.PT SAT 95% AT THIS TIME.
[2016-06-27] VITALS: BP 146/70
--- NOTE | 2016-06-27 00:30 | NUR ---
VITAL SIGNS STABLE, PATIENT CONTINUING TO ASK TO BE SAT UP. EXPLAINED TO PATIENT, SHE IS ALREADY HIGH THE BED ALLOWS, PATIENT IS FRUSTRATED, CALL LIGHT WITHIN REACH. WILL CONTINUE TO MONITOR.
[2016-06-27] MEDS: NACL 0.9% 1,000 ML IV SCH ×2 (00:49→17:03)
--- NOTE | 2016-06-27 01:35 | NUR ---
PATIENT YELLING FROM ROOM SAYING SAYING SHE NEEDS ASSISTANCE, UPON ENTERING ROOM, PATIENT REMOVED HER OXYGEN, WAS SATING AT 79%, EXPLAINED TO PATIENT THE NEED FOR OXYGEN, PATIENT TOLD THE LANDS RESOURCE MANAGER TO "SHUT UP, SIT ME UP! I DONT CARE IF I ." PATIENT AGREED TO PUT ON BIPAP, SATS INCREASED TO 92%. HOB IS AT HIGH FOWLERS, CAN NOT BE PUT UP ANY HIGHER, PATIENT FELL ASLEEP, CALL LIGHT WITHIN REACH, WILL CONTINUE TO MONITOR. Addendum: 06/27/16 at 0147 by Lesley Montgomery RN PATIENT ALSO PULLED OUT IV, TIP INTACT, WILL REINSERT NEW IV.
[2016-06-27] MEDS: NYSTATIN POW 100 MU/GM 15 GM BTL TP SCH ×2 (01:45→12:45)
--- NOTE | 2016-06-27 02:50 | NUR ---
NURSE PLACED PT ON BIPAP, PT SLEEPING AT THIS TIME, VITALS STABLE, NO DISTRESS NOTED
--- NOTE | 2016-06-27 03:22 | NUR ---
PATIENT CONTINUES TO HAVE BIPAP ON, SATS AT 94%, RT SAW THE PATIENT, NO SIGN OF DISTRESS, PATIENT SLEEPING ON AND OFF, CALL LIGHT WITHIN REACH, WILL CONTINUE TO MONITOR.
[2016-06-27 04:00] VITALS: BP 160/78
--- NOTE | 2016-06-27 04:40 | NUR ---
VITAL SIGNS STABLE, PATIENT SLEEPING ON AND OFF WITH BIPAP ON, NEW IV STARTED TO THE RIGHT HAND 24G PATENT AND INTACT, PATIENT TOLERATED WELL, CALL LIGHT WITHIN REACH, WILL CONTINUE TO MONITOR.
--- NOTE | 2016-06-27 05:18 | NUR ---
PATIENT ASKED TO EAT A SNACK, REMOVED BIPAP AND APPLIED NASAL CANNULA, GAVE CRACKERS AND MILK, AFTER PATIENT WAS FINISHED EATING, PATIENT ASKED TO HAVE BIPAP REAPPLIED, PATIENT MORE COOPERATIVE, CALL LIGHT WITHIN REACH, WILL CONTINUE TO MONITOR.
[2016-06-27] MEDS: methylPREDNISolone SS 40 MG/ML VIAL IVP SCH ×3 (05:23→20:17)
[2016-06-27] MEDS: INSULIN ASPART SLIDING SCALE 100 UNITS/ML VIAL SUBQ PRN ×2 (06:10→12:39)
[2016-06-27] MEDS: BLOOD GLUCOSE MONITORING 1 DEV DEV FS SCH ×4 (06:10→21:17)
[2016-06-27 06:39] LABS: BASOPHILS % (AUTO) 0.1 % (0.0-2.0); EOSINOPHILS # (AUTO) 0.3 K/uL (0-0.4); EOSINOPHILS % (AUTO) 1.8 % (0.0-4.0); HEMATOCRIT 27.1 % (36-48); HEMOGLOBIN 8.7 g/dL (12.0-16.0); LYMPHOCYTES # (AUTO) 1.1 K/uL (2.5-16.5); LYMPHOCYTES % (AUTO) 7.9 % (20.5-51.1); MEAN CORPUSCULAR HEMOGLOBIN 26 pg (27-31); MEAN CORPUSCULAR HGB CONC 32 g/dL (33-37); MEAN CORPUSCULAR VOLUME 82 fL (80-94); MONOCYTES # (AUTO) 0.3 K/uL (0.8-1.0); MONOCYTES % (AUTO) 2.4 % (1.7-9.3); NEUTROPHILS # (AUTO) 12.6 K/uL (1.8-7.7); NEUTROPHILS % (AUTO) 87.8 % (42.2-75.2); PLATELET COUNT (AUTO) 345 K/uL (140-450); RED BLOOD CELL COUNT(AUTO) 3.32 MIL/uL (4.20-5.40)
[2016-06-27 06:48] LABS: ANION GAP 12.1 (8-16); CALCIUM 8.4 mg/dL (8.5-10.1); CREATININE 2.1 mg/dL (0.6-1.3); POTASSIUM 5.1 mmol/L (3.5-5.1)
[2016-06-27 07:12] LABS: WHITE BLOOD COUNT (AUTO) 14.3 K/uL (4.8-10.8)
--- NOTE | 2016-06-27 07:25 | NUR ---
ENDORSED PATIENT TO DAY SHIFT RN AT BEDSIDE, PATIENT IN STABLE CONDITION, PATIENT OFF BIPAP AND ON NC @2L SATS AT 95%.
--- NOTE | 2016-06-27 07:26 | NUR ---
RECEIVED REPORT FROM LEAD RECREATION ASSISTANT RN. PT IS A/O X 4, BEDREST. NO S/S OF ACUTE CARDIAC/RESPIRATORY DISTRESS. SAFETY MEASURES IN PLACE, CALL LIGHT WITHIN REACH. WILL CONTINUE PLAN OF CARE AND CONTINUE TO MONITOR.
[2016-06-27 08:00] VITALS: BP 161/74
[2016-06-27] MEDS: ALBUTEROL SULFATE/IPRATROPIU 3 ML SOL IH PRN (08:45)
--- NOTE | 2016-06-27 10:30 | NUR ---
PT IS AWAKE, WITH FAMILY AT BEDSIDE. PT IS BEING ATTENDED BY PT, RN, VALET PARKING ATTENDANT TO BE CLEANED, CHANGED, REPOSITIONED, AND PHYSICAL THERAPY. NO S/S OF DISCOMFORT. PT EASILY GETS ANXIOUS, BUT CAN BE REASSURED HER SAFETY AND BE CALMED DOWN BY STAFF. CALL LIGHT WITHIN REACH, WILL CONTINUE TO MONITOR.
[2016-06-27] MEDS: SACCHAROMYCES 250 MG CAP PO SCH ×2 (10:31→20:17)
[2016-06-27] MEDS: METOPROLOL 25 MG TAB PO SCH ×2 (10:32→20:17)
[2016-06-27] MEDS: FAMOTIDINE 20 MG TAB PO SCH (10:32)
[2016-06-27] MEDS: LISINOPRIL 10 MG TAB PO SCH (10:32)
[2016-06-27] MEDS: ISOSORBIDE DINITRATE 10 MG TAB PO SCH ×3 (10:33→16:36)
[2016-06-27] MEDS: FUROSEMIDE 20 MG/2 ML VIAL IVP SCH ×2 (10:33→20:18)
[2016-06-27] MEDS: LEVOFLOXACIN 750 MG/D5W PREMIX 150 ML IV SCH (11:22)
--- NOTE | 2016-06-27 11:50 | NUR ---
CM NOTE CONCURRENT REVIEW SENT TO [facility] FAX# [phone] PH# [phone] ATTN: IRENE MARTINEZ 6726
[2016-06-27 12:00] VITALS: BP 147/67
--- NOTE | 2016-06-27 12:00 | NUR ---
PT SEEN BY DR ESPITIA, EXPLAINED PLANS OF SNF TX, PT VERBALIZED UNDERSTANDING AND WILL THINK ABOUT IT. RECONFIRMED CODE STATUS AMONG DR, RN, AND PT THAT PT DOES NOT WANT CPR, INTUBATION, OR MEDICATION "I DON'T WANT ANY OF IT".
--- NOTE | 2016-06-27 13:06 | NUR ---
SS NOTE: I SPOKE WITH PT BEDSIDE REGARDING SNF PLACEMENT AND THE IMPORTANCE OF A SAFE DISCHARGE PLAN. PT STATED THAT SHE WANTS TO GO HOME AND IS REFUSING TO GO TO SNF.
--- NOTE | 2016-06-27 13:40 | NUR ---
PT IS RESTING. EKG LEADS CONTINUOUSLY FALLS OFF, PER PT "IT JUST COMES OFF, MY SKIN IS ALWAYS GREASY". WITH ASSESSMENT, PATCHES ARE STILL ON SKIN, BUT LEADS ARE OFF. NO S/S OF ACUTE DISTRESS OR DISCOMFORT, WILL CONTINUE TO MONITOR.
--- NOTE | 2016-06-27 14:11 | NUR ---
SS NOTE: PER MEGHANA FROM [facility] ([phone]), THEY WILL CALL PT TO SCHEDULE A TIME TO COME SEE PT AT HOME.
--- NOTE | 2016-06-27 15:10 | NUR ---
SS NOTE: PER TANA FROM [employer] ([phone]), THEY ARE WORKING ON PT'S BI-PAP AND WILL CALL THE NURSES' STATION WITH AN ETA OF PT'S BI-PAP.
[2016-06-27 16:00] VITALS: BP 152/71
[2016-06-27] MEDS: INSULIN LISPRO SLIDING SCALE 100 UNITS/ML VIAL SUBQ PRN ×2 (16:49→21:17)
--- NOTE | 2016-06-27 16:54 | NUR ---
PT IS RESTING. NO S/S OF ACUTE DISTRESS OR DISCOMFORT. CALL LIGHT WITHIN REACH. WILL CONTINUE TO MONITOR.
--- NOTE | 2016-06-27 19:20 | NUR ---
RECEIVED REPORT FROM RODOLFO Delacruz AT BEDSIDE. INITIAL ASSESSMENT COMPLETED. PT AAO4. PT HAS IV TO RIGHT HAND G 24; ASYMPTOMATIC, PATENT AND INTACT INFUSING FLUIDS WELL. PT HAS BANDAGES TO BILATERAL LOWER EXTREMITIES FOR CELLULITIS, DRY AND INTACT. PT HAS ABDOMINAL AND BREAST FOLDS REDNESS. PT SITTING UP ON BED ON 02 2L NC SATS AT 95%. SISTER AT BEDSIDE. PT HAS A DONAHUE IN PLACE. ORIENTED PT TO ROOM AND SURROUNDINGS AND USE OF CALL LIGHT. EXPLAINED PLAN OF CARE TO PT. WILL CONTINUE TO MONITOR PT.
--- NOTE | 2016-06-27 19:26 | NUR ---
ENDORSED REPORT TO WOOL SAMPLER RN. NO S/S OF ACUTE DISTRESS OR DISCOMFORT. PT IN STABLE CONDITION.
[2016-06-27 20:00] VITALS: BP 142/68
[2016-06-27] MEDS: guaiFENesin DM 200/20 MG-10 ML 10 ML UDC PO PRN (20:18)
--- NOTE | 2016-06-27 20:36 | NUR ---
PT TOLERATED 2100 MEDS WELL, WILL CONTINUE TO MONITOR PT. PT STABLE AT THIS TIME. SLEEPING ON AND OFF. SAT IS 97%. CALL LIGHT WITHIN REACH.
--- NOTE | 2016-06-27 22:30 | NUR ---
PT CALMLY RESTING AT THIS TIME. NO SIGNS OF DISTRESS/DISCOMFORT NOTED. PT SATURATION IS 98% WITH 02 2L NC. WILL CONTINUE TO MONITOR PT.
--- NOTE | 2016-06-27 23:15 | NUR ---
PT IS EXTREMELY OVERWEIGHT. PT HAS TRIED TO HELP TO TURNED IN BED MUCH SHE CAN. WILL CONTINUE TO MONITOR PT.
[2016-06-28] VITALS: BP 145/71
--- NOTE | 2016-06-28 00:10 | NUR ---
CHECKED ON PT. VS STABLE, PT'S SATURATION IS 99% ON 02 2L NC. NO SIGNS OF DISTRESS OR DISCOMFORT NOTED. WILL CONTINUE TO MONITOR PT.
[2016-06-28] MEDS: NYSTATIN POW 100 MU/GM 15 GM BTL TP SCH ×2 (01:00→12:29)
[2016-06-28] MEDS: guaiFENesin DM 200/20 MG-10 ML 10 ML UDC PO PRN (02:19)
--- NOTE | 2016-06-28 02:21 | NUR ---
DID NOT ADMINISTER MYCOSTATIN, MEDICATION NOT AVAILABLE. WILL CONTINUE TO MONITOR PT.
[2016-06-28] MEDS: NACL 0.9% 1,000 ML IV SCH (02:25)
[2016-06-28 04:00] VITALS: BP 138/78
--- NOTE | 2016-06-28 04:39 | NUR ---
CHECKED ON PT, VS ARE STABLE. PT SITTING ON BED ON HIGH FOWLERS POSITION; SHE STATED THAT SHE BREATHS BETTER WHEN SITTING HIGH. NO SIGNS OF DISTRESS/DISCOMFORT NOTED. PT SATS AT 98% 02 2L NC. WILL CONTINUE TO MONITOR PT.
--- NOTE | 2016-06-28 05:35 | NUR ---
PT CHANGED AND REPOSITIONED WITH HELP OF MULTIPLE STAFF MEMBERS. PT HAS A LARGE BM. PT TOLERATED TURNING ON BED WELL. PT SATS AT 98% 02 2L NC. WILL CONTINUE TO MONITOR PT.
[2016-06-28] MEDS: methylPREDNISolone SS 40 MG/ML VIAL IVP SCH ×2 (05:56→12:28)
--- NOTE | 2016-06-28 06:11 | NUR ---
CHECKED PT'S BLOOD GLUCOSE LEVEL AND IT IS 449. SLIDING SCALE SAYS TO CALL MD IF BLOOD GLUCOSE LEVEL IS ABOVE 401. WILL NOTIFY MD.
--- NOTE | 2016-06-28 06:12 | NUR ---
CALL DR. WOODRUFF TO NOTIFY HIM ABOUT PT'S BLOOD GLUCOSE LEVEL. I WAS TOLD DR. FOSTER IS COVERING FOR DR WOODRUFF. AWAITING JEWEL BEARING TURNER.
--- NOTE | 2016-06-28 06:15 | NUR ---
DR. FOSTER CALLED BACK. I NOTIFIED HIM OF PT'S BLOOD GLUCOSE LEVEL 449. HE ORDERED TO GIVE PT THE MAXIMUM AMOUNT OF INSULIN ON SLIDING SCALE. WILL FOLLOW UP ON ORDERERS. WILL MONITOR PT.
[2016-06-28] MEDS: INSULIN LISPRO SLIDING SCALE 100 UNITS/ML VIAL SUBQ PRN ×3 (06:22→16:14)
[2016-06-28] MEDS: BLOOD GLUCOSE MONITORING 1 DEV DEV FS SCH ×3 (06:22→16:13)
[2016-06-28 06:29] LABS: BASOPHILS # (AUTO) 0.2 K/uL (0.00-0.22); BASOPHILS % (AUTO) 1.1 % (0.0-2.0); EOSINOPHILS # (AUTO) 0.1 K/uL (0-0.4); EOSINOPHILS % (AUTO) 0.7 % (0.0-4.0); HEMATOCRIT 28.6 % (36-48); LYMPHOCYTES # (AUTO) 1.3 K/uL (2.5-16.5); LYMPHOCYTES % (AUTO) 8.1 % (20.5-51.1); MEAN CORPUSCULAR HEMOGLOBIN 26 pg (27-31); MEAN CORPUSCULAR HGB CONC 32 g/dL (33-37); MEAN CORPUSCULAR VOLUME 82 fL (80-94); MONOCYTES # (AUTO) 0.3 K/uL (0.8-1.0); NEUTROPHILS # (AUTO) 14.4 K/uL (1.8-7.7); NEUTROPHILS % (AUTO) 88.1 % (42.2-75.2); PLATELET COUNT (AUTO) 365 K/uL (140-450); RED BLOOD CELL COUNT(AUTO) 3.51 MIL/uL (4.20-5.40); RED CELL DISTRIBUTION WIDTH 16.7 % (11.6-13.7)
[2016-06-28 06:38] LABS: ANION GAP 9.3 (8-16); CALCIUM 8.4 mg/dL (8.5-10.1); CARBON DIOXIDE 32.6 mmol/L (21-32); CREATININE 1.8 mg/dL (0.6-1.3); POTASSIUM 4.9 mmol/L (3.5-5.1)
[2016-06-28 06:47] LABS: MAGNESIUM 2.1 mg/dL (1.8-2.4); PHOSPHORUS 4.4 mg/dL (2.5-4.9)
--- NOTE | 2016-06-28 06:48 | NUR ---
PT EXTREMELY HEAVY, REPOSITIONED PT THOUGHT OUT THE SHIFT BY PLACING PILLOWS UNDER HER SIDES OF HER BODY WITH HELP OF PT. PT REALLY HELPS BY PULLING HERSELF BY HOLDING ON TO THE BEDSIDE RAILS. PT TOLERATED THE TURNING WELL. PT SAT 97% ON 02 2L NC.
[2016-06-28 07:14] LABS: WHITE BLOOD COUNT (AUTO) 16.3 K/uL (4.8-10.8)
--- NOTE | 2016-06-28 07:30 | NUR ---
ENDORSED PT IN STABLE CONDITION TO RN [place]NN FOR CONTINUITY OF CARE. PT STABLE; NO SIGNS OF DISTRESS/DISCOMFORT NOTED. PT SATS AT 99% ON 02 2L NC.
--- NOTE | 2016-06-28 07:31 | NUR ---
PT ALERT AND RESPONSIVE, NO SIGNS OF ACUTE DISTRESS. WITH O2 AT 2L/MIN VIA NC. SKIN IS WARM AND DRY. NO NOTED SIGNS OF ANY BOWEL OR BLADDER DISCOMFORT. NO C/O ANY PAIN. NOTED DONAHUE CATHETER IN PLACE WITH 18OML OF CLEAR YELLOW URINE. OFFLOAD TO PRESSURE AREAS, KEPT CLEAN AND DRY. ALL NEEDS ANTICIPATED, SAFETY PRECAUTIONS MAINTAINED. CALL LIGHT WITHIN REACH.
--- NOTE | 2016-06-28 07:35 | NUR ---
SS NOTE: PER JENNIFER FROM [employer], PT'S BI-PAP IS CURRENTLY ON HOLD BECAUSE THEY CONTACTED PT'S DTR FOR THE CO-PAY AND PT IS REFUSING THE BI-PAP.
[2016-06-28 08:00] VITALS: BP 152/72
[2016-06-28] MEDS ORDERED: METO25TA PO (08:37)
[2016-06-28] MEDS ORDERED: METH4TAB27 PO (08:41)
[2016-06-28] MEDS ORDERED: FLUC200T PO (08:52)
[2016-06-28] MEDS ORDERED: LACT1.4C PO (08:54)
[2016-06-28] MEDS ORDERED: AMOX-1000 PO (08:56)
[2016-06-28] MEDS: METOPROLOL 25 MG TAB PO SCH (08:56)
[2016-06-28] MEDS: FAMOTIDINE 20 MG TAB PO SCH (08:56)
[2016-06-28] MEDS: FUROSEMIDE 20 MG/2 ML VIAL IVP SCH (08:56)
[2016-06-28] MEDS: ISOSORBIDE DINITRATE 10 MG TAB PO SCH ×3 (08:56→16:16)
[2016-06-28] MEDS: SACCHAROMYCES 250 MG CAP PO SCH (08:56)
[2016-06-28] MEDS: LISINOPRIL 10 MG TAB PO SCH (08:56)
[2016-06-28] MEDS ORDERED: INSULIN DETEMIR 100 UNITS/ML 10 ML VIAL SUBQ SCH (10:00)
--- NOTE | 2016-06-28 11:55 | NUR ---
SS NOTE: PER JENNIFER FROM [employer], SHE IS WAITING FOR PT'S DTR TO CALL BACK TO MAKE FINANCIAL ARRANGEMENTS FOR PT'S CO-PAY PRIOR TO THEM DISPENSING PT'S BI-PAP.
[2016-06-28 12:00] VITALS: BP 153/82
--- NOTE | 2016-06-28 13:11 | NUR ---
CM NOTE CONCURRENT REVIEW SENT TO [facility] FAX# [phone] PH# [phone] ATTN: IRENE MARTINEZ [id number]
--- NOTE | 2016-06-28 13:59 | NUR ---
SS NOTE: PER JENNIFER FROM [employer], SHE CALLED PT'S DTR AND LEFT A MESSAGE AGAIN REGARDING PT'S CO-PAY FOR PT'S BI-PAP I LEFT A MESSAGE FOR PT'S SON, FELICIA TO REQUEST THAT HE FOLLOWS UP WITH [employer] REGARDING PT'S CO-PAY SO THAT PT CAN RECEIVE HER BI-PAP BEFORE DISCHARGE.
--- NOTE | 2016-06-28 15:33 | NUR ---
SS NOTE: PER JENNIFER FROM [employer] ([phone]), THEY RECEIVED PT'S CO-PAY AND CONFIRMED THAT PT'S CHILDREN WILL BE HOME AT THE TIME OF THE DELIVERY SO THAT THEIR RESPIRATORY THERAPIST CAN EDUCATE PT'S FAMILY ON HOW TO USE PT'S BI-PAP. SHE ALSO STATED THAT THEY WILL DELIVER PT'S BI-PAP TODAY.
[2016-06-28 16:00] VITALS: BP 143/72
--- NOTE | 2016-06-28 16:48 | NUR ---
CM NOTE [phone] AMB [facility]SPORT AUTH# [id number]. SPOKE WITH LILY OF [facility] PH# [phone] TO SET UP PATIENT TRANSPORT. [facility] WILL 3D DESIGNER PATIENT FROM [facility] AT 1740 TIME ON 2L O2 VIA CA REQUESTED BARIATRIC GURNEY TO GO TO PATIENT'S HOME IN [address] [place] [address]. NURSE [place] EXT [phone] AWARE.
--- NOTE | 2016-06-28 17:16 | NUR ---
D/C 'D FC ORDERED. CONTINUE TO MONITOR.
--- NOTE | 2016-06-28 17:17 | NUR ---
PT AWAKE ALERT AND RESPONSIVE, NO SIGNS OF ACUTE DISTRESS. NO C/O PAIN. MAY D/C HOME WITH [facility]. EDUCATED PT AND FAMILY ON CONTINUING PLAN OF CARE WITH PHYSICAL THERAPY. PT AND FAMILY VERBALIZED UNDERSTANDING. IV LINE, WRIST BANDS AND TELE LEADS REMOVED. PERSONAL BELONGINGS WITH FAMILY UPON DISCHARGE. PER SS. PT TO BE PICKED UP BY [facility] VIA GURNEY TO BE TRANSFERRED HOME.
--- NOTE | 2016-06-28 18:20 | NUR ---
PT PICKED UP BY [facility] VIA GURNEY. AWAKE ALERT AND RESPONSIVE, NO SIGNS OF ACUTE DISTRESS. TO BE TRANSPORTED HOME.
[2016-06-29] MEDS ORDERED: INSULIN DETEMIR 100 UNITS/ML 10 ML VIAL SUBQ SCH (09:00)
== END 2016-06-28 18:20 | disposition home health service (06) | DRG 871 ==
LOC: MED 11:17 → MTU 13:02
PROVIDERS: ADMIT Family Medicine; ATTEND Family Medicine
PROC: 0HBRXZZ Excision of Toe Nail, External Approach (ICD-10-PCS; principal; 2016-06-26)
PROC: 0HBRXZZ Excision of Toe Nail, External Approach (ICD-10-PCS; 2016-06-26)
PROC: 0HBRXZZ Excision of Toe Nail, External Approach (ICD-10-PCS; 2016-06-26)
PROC: 0HBRXZZ Excision of Toe Nail, External Approach (ICD-10-PCS; 2016-06-26)
PROC: 0HBRXZZ Excision of Toe Nail, External Approach (ICD-10-PCS; 2016-06-26)
PROC: 0HBRXZZ Excision of Toe Nail, External Approach (ICD-10-PCS; 2016-06-26)
PROC: 0HBRXZZ Excision of Toe Nail, External Approach (ICD-10-PCS; 2016-06-26)
PROC: 0HBRXZZ Excision of Toe Nail, External Approach (ICD-10-PCS; 2016-06-26)
PROC: 0HBRXZZ Excision of Toe Nail, External Approach (ICD-10-PCS; 2016-06-26)
PROC: 0HBRXZZ Excision of Toe Nail, External Approach (ICD-10-PCS; 2016-06-26)
DX: A41.9 Sepsis, unspecified organism (principal); J69.0 Pneumonitis due to inhalation of food and vomit; J96.22 Acute and chronic respiratory failure with hypercapnia; J96.21 Acute and chronic respiratory failure with hypoxia; G93.41 Metabolic encephalopathy; N17.0 Acute kidney failure with tubular necrosis; E43 Unspecified severe protein-calorie malnutrition; I50.43 Acute on chronic combined systolic (congestive) and diastolic (congestive) heart failure; Z68.43 Body mass index [BMI] 50.0-59.9, adult; D68.69 Other thrombophilia; E66.2 Morbid (severe) obesity with alveolar hypoventilation; L03.116 Cellulitis of left lower limb; L03.115 Cellulitis of right lower limb; B37.49 Other urogenital candidiasis; I13.0 Hypertensive heart and chronic kidney disease with heart failure and stage 1 through stage 4 chronic kidney disease, or unspecified chronic kidney disease; J44.1 Chronic obstructive pulmonary disease with (acute) exacerbation; E87.3 Alkalosis; M25.78 Osteophyte, vertebrae; E11.65 Type 2 diabetes mellitus with hyperglycemia; I25.5 Ischemic cardiomyopathy; B35.1 Tinea unguium; E87.8 Other disorders of electrolyte and fluid balance, not elsewhere classified; G40.909 Epilepsy, unspecified, not intractable, without status epilepticus; D63.8 Anemia in other chronic diseases classified elsewhere; E11.22 Type 2 diabetes mellitus with diabetic chronic kidney disease; E11.40 Type 2 diabetes mellitus with diabetic neuropathy, unspecified; E11.51 Type 2 diabetes mellitus with diabetic peripheral angiopathy without gangrene; I87.2 Venous insufficiency (chronic) (peripheral); L89.90 Pressure ulcer of unspecified site, unspecified stage; N18.9 Chronic kidney disease, unspecified; W19.XXXA Unspecified fall, initial encounter; Z90.49 Acquired absence of other specified parts of digestive tract; Y93.89 Activity, other specified; Y92.009 Unspecified place in unspecified non-institutional (private) residence as the place of occurrence of the external cause; Y99.8 Other external cause status; Z79.899 Other long term (current) drug therapy; Z79.4 Long term (current) use of insulin; Z83.3 Family history of diabetes mellitus
CPT/HCPCS: 36415; 36600; 71010; 80048; 80053; 80305; 81001; 82150; 82550; 82553; 82803; 82948; 83036; 83605; 83690; 83735; 83874; 83880; 84100; 84443; 84484; 85025; 85610; 85730; 87040; 87070; 87081; 87086; 87205; 93005; 93880; 93970; 94640; 94660; 96361; 96365; 96375; 97110; 97140; 97530; 99291; C1758; J0696; J1644; J1815; J1940; J1956; J2270; J2920; J2930; J3490; J7030; J7060; J7613; J7620; J7644; Q0092

== ENCOUNTER 2017-01-09 16:09 | Inpatient (IN) | payer OTHER, MEDICAID ==
[~2017-01-09] VITALS: Ht 170.2 cm; Wt 165.6 kg
[2017-01-09] VITALS (12 sets, daily range): BP systolic 65–159; BP diastolic 36–85
[~2017-01-09 16:09] MED LIST changes: -ACET-9529 PO; +AMOX-1000 PO; -AMPI500C49 PO; -DOCU-67 PO; +FLUC200T PO; +LACT1.4C PO; +METH4TAB27 PO; +METO25TA PO
--- NOTE | 2017-01-09 16:25 | NUR ---
PT BIBA FOR LOW BP AND GENRALIZED WEAKNESS. PT AAOX3, WITHMILD RESP DISTRESS-LABORED BREATHING, ON 02-6L VIA NC @ 92%, NO NASAL FLARING OR RETRACTIONS NOTED. PT C/O PAIN TO LOWER BACK. STATES SHE IS FEELING WEAKER THAN USUAL. PER WOUND CARE NURSE, PT ABLE TO WALK WITH ASSISTANCE BUT GETTING WORSE. PT HAS STAGE 3 TO BASE OF LEFT FOOT-ODOROUS AND DRAINING MODERATE YELLOW FLUID. SITE CLEANSED AND RE-DRESSED- CELLULITIS TO TRA LOWER EXTREMITIES. AWAITING ER MD CALVO.
[2017-01-09 17:14] LABS: HEMATOCRIT 26.7 % (36-48); HEMOGLOBIN 8.4 g/dL (12.0-16.0); MEAN CORPUSCULAR HEMOGLOBIN 26 pg (27-31); MEAN CORPUSCULAR HGB CONC 32 g/dL (33-37); MEAN CORPUSCULAR VOLUME 84 fL (80-94); PLATELET COUNT (AUTO) 328 K/uL (140-450); RED BLOOD CELL COUNT(AUTO) 3.19 MIL/uL (4.20-5.40); RED CELL DISTRIBUTION WIDTH 16.2 % (11.6-13.7)
[2017-01-09] MEDS ORDERED: MORPHINE SULFATE 4 MG/ML SYR IVP ONE (17:30)
[2017-01-09 17:35] LABS: PROTHROMBIN TIME 12.7 secs (10.8-13.4)
[2017-01-09 17:44] LABS: ALBUMIN 2.5 g/dL (3.4-5.0); CARBON DIOXIDE 19.3 mmol/L (21-32); CREATININE 2.2 mg/dL (0.6-1.3); POTASSIUM 4.3 mmol/L (3.5-5.1); TOTAL BILIRUBIN 0.3 mg/dL (0.0-1.0)
--- NOTE | 2017-01-09 17:45 | NUR ---
URINE COLLECTED VIA IN AND OUT CATH USING STERILE TECHNIQUE, PT TOLERATE FAIRLY.
[2017-01-09] MEDS ORDERED: NACL 0.9% 1,000 ML IV ONE (17:50)
[2017-01-09] MEDS ORDERED: AZITHROMYCIN 500 MG in DEXTROSE 5% 250 ML IV ONE (17:50)
--- NOTE | 2017-01-09 18:00 | NUR ---
PT C/O BACK PAIN 02/04, BP 105/49, PER JUAN MANUEL MCNEAL TO ADMINISTER MORPHINE . MEEDICATED ORDERED.
[2017-01-09 18:07] LABS: EOSINOPHILS % (MANUAL) 1 % (0-4); LYMPHOCYTES % (MANUAL) 5 % (20-46); MONOCYTES % (MANUAL) 1 % (5-12)
[2017-01-09 18:20] LABS: APPEARANCE,URINE HAZY (CLEAR); BILIRUBIN,URINE NEGATIVE (NEGATIVE); BLOOD, URINE 2+ (NEGATIVE); COLOR,URINE YELLOW (YELLOW); LEUKOCYTE ESTERASE ,URINE 3+ (NEGATIVE); NITRITE, URINE NEGATIVE (NEGATIVE); UGLUCOSE NEGATIVE (NEGATIVE)
[2017-01-09] MEDS ORDERED: AZITHROMYCIN 500 MG INJ VIAL IV ONE (18:23)
[2017-01-09] MEDS ORDERED: cefTRIAXone 1,000 MG VIAL ONE (18:23)
[2017-01-09] MEDS ORDERED: DOCUSATE SODIUM 100 MG GELCAP PO PRN (18:25)
--- NOTE | 2017-01-09 18:44 | NUR ---
REPORT GIVEN TO MISTY REYNOLDS, UPDATED ON STATUS,LABS AND VITALS. BP 82/54, P-76, ON VIA NC @97%. RT AT BEDSIDE FOR ABG COLLECTION. ADMITTING PHYSICIAN AT BEDSIDE.
[2017-01-09] MEDS ORDERED: LORazepam 2 MG/ML VIAL IVP SCH (18:45)
[2017-01-09] MEDS ORDERED: HYDROmorphone 1 MG/ML AMP IVP SCH (18:45)
[2017-01-09 18:48] LABS: RBC,URINE 3-10 (FEW) /HPF (0-5); WBC,URINE TOO MANY TO COUNT /HPF (0-5)
[2017-01-09 18:58] LABS: BARBITURATE, URINE NEG. ng/ml (NEG <=200); BENZODIAZEPINE, URINE NEG. ng/mL (NEG <=200); CANNABINOID, URINE NEG. ng/mL (NEG <=50); COCAINE, URINE NEG. ng/mL (NEG <=300); OPIATE, URINE NEG. ng/mL (NEG <=2000); PHENCYCLIDINE SCREEN,URINE NEG. ng/mL (NEG <=25)
[2017-01-09 19:06] LABS: CHOL/HDL RATIO 3.3 (1-4.5); FREE T4 (FREE THYROXINE) 1.17 ng/dL (0.76-1.46); MAGNESIUM 1.4 mg/dL (1.8-2.4); PHOSPHORUS 2.6 mg/dL (2.5-4.9); THYROID STIMULATING HORMONE 7.98 uIU/mL (0.34-3.74)
[2017-01-09] MEDS ORDERED: NACL 0.9% 1,000 ML IV SCH (19:30)
--- NOTE | 2017-01-09 19:30 | NUR ---
DR. NASRA CASTORENA SPOKE WITH PATIENT'S SON FELICIA BERMAN, OBTAINED CONSENT FOR CENTRAL LINE PLACEMENT.
--- NOTE | 2017-01-09 19:30 | NUR ---
PT ARRIVED VIA GURNEY FROM ER WITH 2 STAFF AT 1900. RT AT BED SIDE. DR. CASTORENA AT BED SIDE. PT IS ALERT AND ORIENTED X3 BUT LETHARGIC. SEVERELY WEAK AND CANNOT MOVE LOWER EXTREMITIES AND SLIGHT MOVEMENT TO UPPER EXTREMITIES. ON NC WITH 3L/MIN. ON CARDIAC MONITORING. PERIPHERAL IV TO THE LEFT AC #20. NO INFILTRATION AND NO PHLEBITIS NOTED. NOTED REDNESS TO ABDOMINAL FOLDS, OPEN WOUND TO LEFT PLANTAR FOOT, MULTIPLE SCABS AND DRY FLAKES TO BILATERAL FEET, BLOOD SCAB TO RIGHT TOE, HYPERTROPHIC TOE NAILS, BILATERAL LOWER EXTREMITIES WITH ERYTHEMA AND NON PITTING EDEMA, SCATTERED BLISTERS TO RIGHT LOWER LEG. DR. CASTORENA AWARE OF THE ABOVE FINDINGS. WILL FOLLOW UP WITH ORDERS AND WILL CONTINUE TO MONITOR CLOSELY. Addendum: 01/10/17 at 0447 by Susy Merino RN ALL SAFETY PRECAUTIONS WERE CARRIED OUT. CALL LIGHT IN REACH. BED TO THE LOWEST POSITION. BILATERAL S/R UP.
[2017-01-09] MEDS ORDERED: NACL 0.9% 4,000 ML IV SCH (19:35)
--- NOTE | 2017-01-09 20:40 | NUR ---
DR CASTORENA AT BED SIDE INSERTED CENTRAL LINE WITH TRIPLE LUMENS TO RIGHT INTERNAL JUGULAR. ORDER RECEIVED FOR STAT CHEST X-RAY AND CARRIED OUT.
[2017-01-09] MEDS ORDERED: NOREPINEPHRINE 8 MG in DEXTROSE 5% 250 ML IV PRN ×2 (21:10→21:35)
[2017-01-09] MEDS ORDERED: NOREPINEPHRINE 4 MG/4 ML VIAL IV ONE (21:26)
--- NOTE | 2017-01-09 22:00 | NUR ---
INSERTED DONAHUE CATH 16 FR/10CC WITH ASEPTIC TECHNIQUE. PT TOLERATED WELL. 20CC CLOUDY YELLOW URINE OBSERVED IN THE DONAHUE BAG AND RAINING VIA GRAVITY. DONAHUE CATH SECURED ON THE RIGHT UPPER LEG. WILL CONTINUE TO MONITOR.
[2017-01-09] MEDS: NACL 0.9% 1,000 ML IV SCH ×2 (22:45→22:52)
--- NOTE | 2017-01-09 23:19 | NUR ---
DR. CASTORENA MADE AWARE OF ABG RESULTS. NO NEW ORDER RECEIVED.
[2017-01-09] MEDS ORDERED: PIPERACILLIN/TAZOBACTAM 2.25 GM VIAL IV ONE (23:26)
[2017-01-10] VITALS (96 sets, daily range): BP systolic 81–159; BP diastolic 34–87
[2017-01-10] MEDS: PIPER/TAZO 2.25GM/D5W PREMIX 50 ML IV SCH ×2 (00:25→05:21)
[2017-01-10] MEDS ORDERED: DEXTROSE 50% 50 ML SYR IVP PRN ×2 (01:00→11:25)
[2017-01-10] MEDS ORDERED: IPRATROPIUM 0.02% 0.5 MG/2.5 ML NEBU INH PRN ×2 (01:00)
[2017-01-10] MEDS ORDERED: ALBUTEROL 0.083% 2.5 MG/3 ML NEBU INH PRN (01:00)
--- NOTE | 2017-01-10 02:00 | NUR ---
PT DENIES PAIN OR DISCOMFORT. CONTINUES TO BE MONITORED WITH LIFT TRUCK OPERATOR. CONTINUES ON LEVOPHED DRIP AND TITRATING ORDERED. CONTINUES WITH IVF ORDERED. NO ACUTE DISTRESS NOTED. WILL CONTINUE TO MONITOR.
[2017-01-10] MEDS: ALBUTEROL 0.083% 2.5 MG/3 ML NEBU INH SCH ×2 (02:15→07:14)
[2017-01-10] MEDS: ONDANSETRON 4 MG/2 ML VIAL IM/IVP PRN ×2 (03:38→11:56)
[2017-01-10] MEDS: NACL 0.9% 1,000 ML IV SCH ×6 (03:38→22:24)
[2017-01-10] MEDS: HYDROcodone/APAP 7.5/325 MG 1 TAB PO PRN (03:44)
--- NOTE | 2017-01-10 04:07 | NUR ---
NOTIFIED DR. CASTORENA ABOUT PT'S TACHYCARDIA, ENVIRONMENTAL GEOLOGIST READING AND THE RATE BEING FLUCTUATING.
--- NOTE | 2017-01-10 04:09 | NUR ---
DR. CASTORENA AT BED SIDE. WILL FOLLOW UP WITH ORDERS.
[2017-01-10] MEDS ORDERED: DILTIAZEM 25 MG/5 ML VIAL IVP SCH (04:10)
[2017-01-10] MEDS: ACETAMINOPHEN 325 MG TAB PO PRN (04:22)
--- NOTE | 2017-01-10 04:22 | NUR ---
NOTED TEMPERATURE OF 102.2 AXILLARY. COOLING MEASURES WERE PROVIDED AND TYLENOL WAS ADMINISTERED ORDERED. WILL CONTINUE TO MONITOR.
--- NOTE | 2017-01-10 04:56 | NUR ---
DR. CASTORENA CAME BACK TO THE UNIT TO CHECK ON THE PATIENT, UPDATES GIVEN: PATIENT HAD 103 TEMPERATURE AT 0422, TYLENOL WAS GIVEN ORDERED, CARDIZEM IVP 10 MG WAS GIVEN ALSO BUT PATIENT'S HR STILL RUNNING AT 130-150, PATIENT RESTING AT THIS TIME. DR. CASTORENA SAID "OK". DR. CASTORENA INFORMED ALSO THAT PATIENT WITH URINE OUTPUT AF MORE THAN 50 MLS SINCE DONAHUE CATH WAS INSERTED LAST NIGHT.
--- NOTE | 2017-01-10 05:14 | NUR ---
OBTAINED ORDER FROM DR. CASTORENA FOR K STAT.
--- NOTE | 2017-01-10 05:35 | NUR ---
DR. CASTORENA MADE AWARE OF THE EKG RESULT. NO NEW ORDER RECEIVED. WILL CONTINUE TO MONITOR.
--- NOTE | 2017-01-10 06:40 | NUR ---
DR. GRIFFITH CALLED, UPDATES GIVEN ON PATIENT'S CONDITION AND WHAT HAPPENED DURING THE SHIFT.
[2017-01-10] MEDS: BLOOD GLUCOSE MONITORING 1 DEV DEV FS SCH ×4 (06:48→21:08)
[2017-01-10] MEDS: INSULIN LISPRO SLIDING SCALE 100 UNITS/ML VIAL SUBQ PRN ×4 (06:50→21:30)
--- NOTE | 2017-01-10 06:59 | NUR ---
TEMPERATURE IS 101.1 AXILLARY AT THIS TIME. PT IS A&O X3. DENIES ANY PAIN OR DISCOMFORT. STATED THAT SHE IS FEELING BETTER. CONTINUES WITH COOLING MEASURES. WILL CONTINUE TO MONITOR.
--- NOTE | 2017-01-10 07:12 | NUR ---
GAVE REPORT TO RODOLFO MAJOR FOR CONTINUITY OF CARE. PT HAS NO ACUTE DISTRESS. DENIES ANY DISCOMFORT AT THIS TIME. ALL SAFETY PRECAUTIONS ARE CARRIED OUT. BED IS AT LOWEST POSITION. BILATERAL S/R R UP. CALL LIGHT IN REACH.
--- NOTE | 2017-01-10 07:14 | NUR ---
OXYGEN TITRATED TO 3L NC. SPO2 97%. WILL CONTINUE TO MONITOR.
--- NOTE | 2017-01-10 07:15 | NUR ---
RECEIVED REPORT FROM CHRISTINE RN. PT SEEN AT BEDSIDE RECEIVING BREATHING TX WITH RT SERGE. PT IS AAOX3, ON 3L NC SATING AT 97%. NO S/S DISTRESS OR SOB AT THIS TIME. PER PT, HER BREATHING "FEELS A LITTLE BIT BETTER". PT IS ON PERMANENT WAVER WITH HR AT 75 WITH 1ST DEGREE HB AT THIS TIME. LEFT AC 20G IV SALINE LOCKED. RIGHT IJ TLC NOTED, RUNNING IVF AND LEVOPHED DRIP. CENTRAL LINE IS INTACT AND BLOOD RETURN VISIBLE. PT IS NPO EXCEPT MEDS. BOWEL SOUNDS AUDIBLE IN X4 QUADRANTS. PT IS MORBIDLY OBESE. PT HAS OPEN WOUND ON LEFT FOOT, COVERED WITH DRESSING. NO DRAINAGE NOTED AT THIS TIME. BLE HAS REDNESS AND SKIN FLAKES. REDNESS NOTED ON ABD FOLDS. PT HAS A DONAHUE CATHETER DRAINING YELLOW URINE. Addendum: 01/10/17 at 1150 by Chrissy Thompson RN PT HAS DONAHUE CATHETER DRAINING CLOUDY, YELLOW, URINE. SAFETY MEASURES CHECKED, CALL LIGHT LEFT AT BEDSIDE. WILL CONTINUE TO MONITOR.
[2017-01-10] MEDS ORDERED: ALBUTEROL SULFATE/IPRATROPIU 3 ML SOL IH PRN (07:30)
--- NOTE | 2017-01-10 07:35 | NUR ---
US TECH AT BEDSIDE PERFORMING BLE DOPPLER.
[2017-01-10] MEDS ORDERED: MILD SOAP AND WATER TP PRN (08:10)
[2017-01-10] MEDS ORDERED: HYDRAGUARD CREAM TP PRN (08:10)
[2017-01-10] MEDS ORDERED: DRY DRESSING TP PRN (08:10)
[2017-01-10] MEDS ORDERED: GAUZE TP PRN (08:10)
[2017-01-10] MEDS ORDERED: THERAHONEY WOUND DRESSING TP PRN (08:10)
[2017-01-10] MEDS ORDERED: NACL 0.9% IRR 250 ML BOTTLE IR PRN (08:10)
[2017-01-10] MEDS ORDERED: THERAHONEY GEL 42.5 GM TP PRN (08:10)
--- NOTE | 2017-01-10 08:10 | NUR ---
PATIENT HAS BEEN SCREENED AND CATEGORIZED HIGH NUTRITION RISK. PATIENT WILL BE SEEN WITHIN 1-2 DAYS OF ADMISSION. 01/10/17-01/11/[address]
--- NOTE | 2017-01-10 08:15 | NUR ---
DR GALE AND RESIDENTS AT BEDSIDE. UPDATED MD ON PATIENT CONDITION. NOTIFIED MD THAT THERE ARE NO UPDATED LABS FOR AM. MD STATED HE WILL PUT IN ORDERS. WILL FOLLOW UP.
--- NOTE | 2017-01-10 08:30 | NUR ---
PT OFF UNIT TO GET CT ABD AND CXR. ACCOMPANIED BY AUTO SLIP COVER INSTALLER AND RODOLFO MAJOR.
[2017-01-10] MEDS ORDERED: CLINICAL MONITORING MC PRN (08:45)
[2017-01-10 08:48] LABS: T4 (THYROXINE) 6.5 ug/dL (4.5 - 12.0)
--- NOTE | 2017-01-10 08:50 | NUR ---
PT BACK FROM RADIOLOGY. PLACED BACK ON BEDSIDE MONITOR. PT TOLERATED WELL. REPOSITIONED FOR COMFORT. WILL CONTINUE TO MONITOR.
[2017-01-10] MEDS ORDERED: NYSTATIN POW 100 MU/GM 15 GM BTL TP SCH (09:00)
--- NOTE | 2017-01-10 09:00 | NUR ---
SERGE CHILD AT BEDSIDE FOR ABG DRAW.
--- NOTE | 2017-01-10 09:04 | NUR ---
FAXED REQUEST FOR RECORDS TO [facility]. FAX WAS SUCCESSFUL.
--- NOTE | 2017-01-10 09:14 | NUR ---
BP 127/52 ([id number]) LEVOPHED HELD AT THIS TIME PER PROTOCOL.
--- NOTE | 2017-01-10 09:30 | NUR ---
IRRIGATION SERVICE TECHNICIAN, RENETTA AT BEDSIDE ASSESSING PATIENT.
--- NOTE | 2017-01-10 09:52 | NUR ---
DR CANO, PODIATRY RESIDENT, AT BEDSIDE ASSESSING AND TALKING TO PATIENT. UPDATED MD ON PATIENT CONDITION. PER MD, SHE WILL TRY TO DO DEBRIDEMENT OF LEFT FOOT TODAY. WILL FOLLOW UP ON ORDERS.
[2017-01-10] MEDS: LACTOBACILLUS RHAMNOSUS GG 1 EACH CAP PO SCH (09:58)
--- NOTE | 2017-01-10 10:00 | NUR ---
WOUND CARE EVALUATION NOTE REASON FOR EVALUATION: DIABETIC ULCER LEFT PLANTAR COMPLETE SKIN ASSESSMENT DONE ON THIS 71 Y/O FEMALE PATIENT FROM HOME TO [facility], WITH INITIAL DIAGNOSIS OF FOOT ULCER. PAST MEDICAL HISTORY INCLUDE DM, HTN, CARDIOMYOPATHY,AND MORBID OBESITY. ALL ABOVE INFORMATION WAS OBTAINED FROM THE ADMISSION H&P. LABS ARE WBC 21.0, H/H 8.4/26.7, GLUCOSE 186, ALBUMIN 2.5, PT/INR 12.7/1.3 AND PTT 25.7. CURRENT MEDS INCLUDE ALBUTERAL, LISPOR AND MORPHINE. PATIENT IS AWAKE, ORIENTED TO PERSON, PLACE, DATE AND TIME. SKIN WARM TO TOUCH WNL, TOENAILS ARE YELLOW AND THICKENED, FUNGALLY LOOKING, BLE +EDEMA, NO HAIR GROWTH, BLE ARE DRY AND FLAKY, WITH FOUL ODOR AND UNABLE TO PALPATE BILATERAL PEDAL PULSES. FC 16FR PATENT AND INTACT TO DEMETRA COLORED URINE IN SMALL AMOUNT. NEEDS MAX ASSISTANCE IN TURNING. INITIAL PLAN OF CARE AND PRESSURE PREVENTIVE MEASURES DISCUSSED WITH PRIMARY RN AND PT. PT ABLE TO VERBALIZE UNDERSTANDING. INTEGUMENTARY: BILATERAL BREASTFOLDS, GROINS AND ABDOMINAL FOLDS - INTERTRIGINOUS DERMATITIS BLE - DRY AND FLAKY, PENDING ARTERIAL AND VENOUS U/S RESULT LLE- SKIN INTACT, ERYTHEMA SACRALCOCCYX-BLANCHABLE REDNESS CLEANSE LEFT PLANTAR DIABETIC ULCER UNSTAGEABLE 5X4AAAE 100% YELLOW SLOUGH, PW MACERATION RIGHT BIG TOE-SDTI 1X1, 100% MAROON COLOR RECOMMENDATIONS: -CLEANSE BILATERAL BREASTFOLDS, GROINS ABDOMINAL FOLDS WITH MILD SOAP AND WATER, PAT DRY, APPLY NYSTATIN CREAM AND INTERDRY Q 7 DAYS AND PRN WITH SOILING. CHECK DRESSING PLACEMENT DAILY -CLEANSE SACRALCOCCYX WITH MILD SOAP AND WATER, PAT DRY, APPLY HYDRAGUARD BIDWC AND PRN WITH SOILING. LEAVE OPEN TO AIR -CLEANSE LEFT PLANTAR WITH NS. APPLY THERAHONEY COVER WITH DRY DRESSING BID AND PRN IF SOILING. RECOMMEND FOR DEBRIDEMENT -RIGHT BIG TOE SDTI CLEANSE WITH SKIN PREP AND DANIEL QD -TURN AND REPOSITION PATIENT Q 2H -ASSESS AND MONITOR SKIN CONDITION DURING POSITION CHANGE, PLEASE PAY PARTICULAR ATTENTION TO SACRALCOCCYX AND RIGHT BIG TOE AREAS -OFFLOAD BILATERAL HEELS BY PLACING PILLOWS UNDER CALVES AT ALL TIMES, UNLESS OTHERWISE CONTRAINDICATED -PRESSURE REDISTRIBUTION SURFACE THERAPY -PODIATRY CONSULT IN PLACE -BLE ARTERIAL AND VENOUS U/S PENDING RESULTS -KEEP SKIN CLEAN AND DRY AT ALL TIMES. RECOMMENDATIONS DISCUSSED WITH PRIMARY RN AND WILL FOLLOW UP PATIENT Q7-10 DAYS AND PRN. PLEASE CONTACT WOUND CARE NURSE FOR ANY CONCERNS, QUESTIONS AND CHANGES IN SKIN CONDITION.
--- NOTE | 2017-01-10 10:00 | NUR ---
RECEIVED CONSENT FOR LEFT FOOT DEBRIDEMENT FROM PATIENT.
--- NOTE | 2017-01-10 10:00 | NUR ---
RECEIVED CALL FROM FELICIA, PT'S SON. UPDATED FELICIA ON PATIENT'S CONDITION. PER FELICIA, HE DOES NOT KNOW WHEN HIS MOTHER RECEIVED PNA/FLU VAX. FELICIA STATED HE WOULD COME IN SOMETIME TODAY TO VISIT.
--- NOTE | 2017-01-10 10:15 | NUR ---
DR SARABIA AT NURSING STATION. UPDATED MD ON PATIENT CONDITION. WILL FOLLOW UP ON ORDERS.
--- NOTE | 2017-01-10 10:31 | NUR ---
LEVOPHED ON 5MCG/MIN FOR BP 84/49.
[2017-01-10 11:00] LABS: HEMATOCRIT 25.9 % (36-48); HEMOGLOBIN 8.3 g/dL (12.0-16.0); MEAN CORPUSCULAR HEMOGLOBIN 27 pg (27-31); MEAN CORPUSCULAR HGB CONC 32 g/dL (33-37); MEAN CORPUSCULAR VOLUME 84 fL (80-94); PLATELET COUNT (AUTO) 298 K/uL (140-450); RED CELL DISTRIBUTION WIDTH 16.4 % (11.6-13.7)
--- NOTE | 2017-01-10 11:00 | NUR ---
RECEIVED RECORDS FROM [facility]. NOTIFIED DR BLANC.
[2017-01-10 11:13] LABS: ANION GAP 15.7 (8-16); CARBON DIOXIDE 19.5 mmol/L (21-32); CREATININE 2.6 mg/dL (0.6-1.3); POTASSIUM 5.2 mmol/L (3.5-5.1)
--- NOTE | 2017-01-10 11:15 | NUR ---
BOTTOM TURNER AT BEDSIDE.
[2017-01-10 11:16] LABS: MAGNESIUM 1.4 mg/dL (1.8-2.4); PHOSPHORUS 4.1 mg/dL (2.5-4.9)
[2017-01-10] MEDS ORDERED: INSULIN LISPRO SLIDING SCALE 100 UNITS/ML VIAL SUBQ PRN (11:25)
[2017-01-10] MEDS ORDERED: BLOOD GLUCOSE MONITORING 1 DEV DEV FS SCH (11:30)
[2017-01-10 11:43] LABS: WHITE BLOOD COUNT (AUTO) 38.8 K/uL (4.8-10.8)
[2017-01-10 11:44] LABS: LYMPHOCYTES % (MANUAL) 5 % (20-46); MONOCYTES % (MANUAL) 3 % (5-12)
--- NOTE | 2017-01-10 11:47 | NUR ---
RECEIVED CALL FROM LAB WBC 38.8. NOTIFIED DR BRUNO. PER , SHE WILL VISIT PATIENT. WILL FOLLOW UP WITH ORDERS.
[2017-01-10] MEDS: PIPER/TAZO 3.375GM/D5W PREMIX 50 ML IV SCH ×2 (11:59→17:35)
--- NOTE | 2017-01-10 12:12 | NUR ---
DR BLANC ASSESSED PATIENT AT BEDSIDE. NOW AT NURSING STATION. WILL FOLLOW UP WITH ORDERS. ADMINISTERED ROUTINE MEDICATIONS WITH EDUCATION. PT VERBALIZED UNDERSTANDING.
--- NOTE | 2017-01-10 12:21 | NUR ---
01/10/17 RD INITIAL ASSESSMENT COMPLETED PLEASE REFER TO NUTRITION ASSESSMENT UNDER CARE ACTIVITY FOR ESTIMATED NUTRITIONAL NEEDS. 1. WHEN MEDICALLY FEASIBLE, INITIATE PO DIET - TO START ON CLEAR LIQUID DIET, ADVANCE TOLERATED TO 75G CONSISTENT CARBOHDYRATE DIET 2. ADD VITAMIN C SUPPLEMENTATION (500 MG/2X DAILY) 3. RD TO FOLLOW-UP 2-3 DAYS, HIGH RISK KARLI FUENTES, RD
--- NOTE | 2017-01-10 12:22 | NUR ---
NOTIFIED DR GALE THAT PATIENT HAS BEEN HAVING LOW URINE OUTPUT. LAST SHIFT FOR 12 HRS, SHE HAD 75ML URINE. AWARE. Addendum: 01/10/17 at 1303 by Chrissy Thompson RN ALSO NOTIFIED THAT POTASSIUM IS 5.2. AWARE. WILL FOLLOW UP WITH ORDERS.
[2017-01-10] MEDS ORDERED: MAG SULF 2000 MG/WATER PREMIX 50 ML IV SCH (12:30)
[2017-01-10] MEDS ORDERED: HYDRAGUARD CREAM TP SCH (13:40)
[2017-01-10] MEDS: SKINTEGRITY HYDROGEL TP SCH (13:54)
[2017-01-10] MEDS: ALBUTEROL SULFATE/IPRATROPIU 3 ML SOL IH SCH ×3 (13:59→19:14)
--- NOTE | 2017-01-10 14:01 | NUR ---
PT REFUSING BREATHING TX AT THIS TIME STATING SHE IS NAUSEOUS AND FEELS LIKE THE MASK WILL MAKE HER THROW UP. PT IS NOT SOB AND NOT IN RESPIRATORY DISTRESS AT THIS TIME.
[2017-01-10] MEDS: THERAHONEY GEL 42.5 GM TP SCH (14:30)
--- NOTE | 2017-01-10 15:00 | NUR ---
DR JEROME GRAHAM FOR DEBRIDEMENT OF LEFT FOOT. CONSENT ALREADY SIGNED.
--- NOTE | 2017-01-10 15:10 | NUR ---
TIME OUT DONE FOR LEFT FOOT DEBRIDEMENT PROCEDURE.
--- NOTE | 2017-01-10 15:30 | NUR ---
HYDROGEL AND THERAHONEY NOT APPLIED BECAUSE DR. CANO HAS DONE DRESSING CHANGE AND WOUND CARE FOR PATIENT'S FEET.
--- NOTE | 2017-01-10 16:33 | NUR ---
NYSTATIN APPLIED AND INTERDRY PLACED ON ABD FOLDS, PERIAREA, AND BREAST FOLDS. PT TURNED AND REPOSITIONED FOR COMFORT. HYDRAGUARD APPLIED TO SACRALCOCCYX. BLANCHABLE REDNESS NOTED ON SACRAL COCCYX. LINEN AND GOWN CHANGED. BEDBATH GIVEN. PT TOLERATED WELL. WILL CONTINUE TO MONITOR.
--- NOTE | 2017-01-10 17:40 | NUR ---
DR CASTORENA AT NURSING STATION. UPDATED MD ON PATIENT CONDITION. WILL FOLLOW UP WITH ORDERS.
--- NOTE | 2017-01-10 17:45 | NUR ---
PT'S SON, FELICIA VISITING. UPDATED FELICIA ON SITUATION.
--- NOTE | 2017-01-10 18:00 | NUR ---
PT SEEN BY DR THAPA. UPDATED MD ON PATIENT CONDITION. WILL FOLLOW UP ON ORDERS.
[2017-01-10] MEDS ORDERED: VANCOMYCIN PER PHARMACY MC PRN (18:35)
[2017-01-10] MEDS ORDERED: GENTAMICIN PER PHARMACY MC PRN (18:35)
--- NOTE | 2017-01-10 18:40 | NUR ---
RECEIVED CALL FROM DR. HARRELL. UPDATED MD ON PATIENT CONDITION. WILL FOLLOW UP ON ORDERS.
--- NOTE | 2017-01-10 18:40 | NUR ---
PT REQUESTS TO BE SUPINE AT THIS TIME.
--- NOTE | 2017-01-10 19:20 | NUR ---
REPORT RECEIVED FROM RODOLFO MAJOR AT BED SIDE. PT IS ALERT AND ORIENTED X3. PERRLA. VERBALLY RESPONSIVE. RIGHT IJ CENTRAL LINE WITH 3 LUMENS NOTED. CENTRAL LINE SITE CLEAN AND NO S/SX OF INFILTRATION OR PHLEBITIS. BILATERAL LUNG SOUNDS CLEAR AND DIMINISHED IN THE LOWER LOBES. BILATERAL HAND PSYCHIATRIC ARNP EQUAL BUT WEAK. HYPOACTIVE BOWEL SOUNDS HEARD FROM ALL 4 QUADRANTS. NOTED WITH REDNESS TO THE ABDOMINAL FOLDS. NOTED WITH TREATMENT IN PLACE. WILL CARRY OUT ORDERED. PT UNABLE TO MOVE BILATERAL LEGS. NOTED WITH ERYTHEMA TO THE BILATERAL LOWER EXTREMITIES WITH NON PITTING EDEMA WITH LEFT SIDE MORE RED IN COLOR THAN RIGHT. LEFT FOOT NOTED WRAPPED WITH KERLIX. REPORT RECEIVED THAT DEBRIDEMENT WAS DONE TODAY. RIGHT BIG TOE NOTED WITH CLEAN DRESSING. DONAHUE SECURED ON THE LEFT LEG AND CLOUDY YELLOW URINE NOTED IN THE DRAINAGE BAG ABOUT 10CC. PT ON CARDIAC MONITORING. ON 3L/MIN OXYGEN VIA NASAL CANULA. ON LEVOPHED DRIP WITH TITRATION. PT DENIES ANY DISCOMFORT OR PAIN. WILL CONTINUE TO MONITOR CLOSELY. ALL SAFETY PRECAUTIONS ARE IN PLACE. CALL LIGHT IS WITHIN REACH. BED IS AT THE LOWEST POSITION. BILATERAL S/R UP.
[2017-01-10] MEDS ORDERED: VANCOMYCIN 1,250 MG in DEXTROSE 5% 250 ML IV SCH (20:00)
--- NOTE | 2017-01-10 20:43 | NUR ---
DR. HARRELL AT BED SIDE. WILL FOLLOW UP WITH ORDERS.
[2017-01-10] MEDS ORDERED: APIXABAN 2.5 MG TAB PO SCH (21:00)
[2017-01-10] MEDS ORDERED: GENTAMICIN 100 MG in DEXTROSE 5% 100 ML IV SCH (21:00)
[2017-01-10] MEDS ORDERED: MEROPENEM 500 MG in NACL 0.9% 50 ML IV SCH (21:00)
[2017-01-10] MEDS: APIXABAN 2.5 MG TAB PO SCH (21:04)
[2017-01-10] MEDS: MEROPENEM 500 MG in NACL 0.9% 50 ML IV SCH (21:06)
--- NOTE | 2017-01-10 21:30 | NUR ---
PT TOLERATED ALL SCHEDULED MEDICATIONS. PT DENIES ANY PAIN OR DISCOMFORT AT THIS TIME. NO ACUTE DISTRESS NOTED. CONTINUES WITH LEVOPED DRIP. WILL CONTINUE TO MONITOR.
[2017-01-10] MEDS: MORPHINE SULFATE 2 MG/ML SYR IVP PRN (22:58)
--- NOTE | 2017-01-10 23:34 | NUR ---
DR. CASTORENA NOTIFIED OF PT'S RHYTHM OF COUPLET, BIGEMINY, TRIGEMINY. PT IS RESTING COMFORTABLY, NO SIGNS OF DISTRESS. ASYMPTOMATIC. DR. CASTORENA SAID HE WILL ORDER EKG. WILL CONTINUE TO MONITOR.
--- NOTE | 2017-01-10 23:46 | NUR ---
EKG DONE, DR. CASTORENA NOTIFIED OF THE READING. DR. CASTORENA SAID HE WILL SEE THE PATIENT.
[2017-01-11] VITALS (96 sets, daily range): BP systolic 83–149; BP diastolic 40–91
--- NOTE | 2017-01-11 00:09 | NUR ---
DR. CASTORENA IN THE UNIT. WILL FOLLOW UP ORDERS.
[2017-01-11] MEDS: HYDRAGUARD CREAM TP SCH ×2 (00:31→13:00)
[2017-01-11] MEDS: NYSTATIN CRE 100 MU/GM 15 GM TUBE TP SCH ×2 (00:31→13:00)
[2017-01-11] MEDS: THERAHONEY GEL 42.5 GM TP SCH ×2 (00:32→13:00)
[2017-01-11] MEDS ORDERED: SODIUM POLYSTYRENE 15 GM/60 ML UDBTL PO SCH (01:00)
[2017-01-11] MEDS ORDERED: MAG SULF 2000 MG/WATER PREMIX 50 ML IV SCH ×2 (01:00→07:00)
[2017-01-11] MEDS ORDERED: SODIUM CHLORIDE 1 GM TAB PO SCH (01:00)
--- NOTE | 2017-01-11 01:15 | NUR ---
NEW MEDICATIONS ORDERED BY DR. CASTORENA WERE ADMINISTERED. PT TOLERATED WELL. CONTINUES WITH LEVOPHED DRIP AND ON CONTINUOS CARDIAC MONITORING. DENIES PAIN OR DISCOMFORT AT THIS TIME. ALL SAFETY PRECAUTIONS ARE IN PLACE. WILL CONTINUE TO MONITOR.
[2017-01-11] MEDS: ALBUTEROL SULFATE/IPRATROPIU 3 ML SOL IH SCH ×4 (01:45→19:07)
--- NOTE | 2017-01-11 02:30 | NUR ---
PT SLEEPING AT THIS TIME. NO ACUTE DISTRESS NOTED. CONTINUES WITH LEVOPHED DRIP AND CARDIAC MONITORING. ALL SAFETY PRECAUTIONS ARE IN PLACE. WILL CONTINUE TO MONITOR.
[2017-01-11] MEDS: NACL 0.9% 1,000 ML IV SCH ×5 (03:18→23:18)
--- NOTE | 2017-01-11 04:00 | NUR ---
PT HAD A LARGE SOFT BOWEL MOVEMENT. PROVIDED PERICARE AND AM CARE. KEPT CLEAN AND DRY. TOLERATED WELL. DENIES PAIN OR DISCOMFORT AND NO ACUTE DISTRESS NOTED. CONTINUES WITH LEVOPHED DRIP AND CARDIAC MONITORING. ALL SAFETY PRECAUTIONS ARE IN PLACE. WILL CONTINUE TO MONITOR.
[2017-01-11 05:46] LABS: HEMATOCRIT 23.8 % (36-48); HEMOGLOBIN 7.6 g/dL (12.0-16.0); MEAN CORPUSCULAR HEMOGLOBIN 27 pg (27-31); MEAN CORPUSCULAR HGB CONC 32 g/dL (33-37); MEAN CORPUSCULAR VOLUME 84 fL (80-94); PLATELET COUNT (AUTO) 248 K/uL (140-450); RED BLOOD CELL COUNT(AUTO) 2.84 MIL/uL (4.20-5.40); RED CELL DISTRIBUTION WIDTH 16.7 % (11.6-13.7)
[2017-01-11 05:51] LABS: WHITE BLOOD COUNT (AUTO) 32.7 K/uL (4.8-10.8)
--- NOTE | 2017-01-11 05:51 | NUR ---
REPORTED CRITICAL LAB VALUES TO DR. OCHOA. NO NEW ORDER RECEIVED.
[2017-01-11 06:03] LABS: LYMPHOCYTES % (MANUAL) 8 % (20-46); MONOCYTES % (MANUAL) 2 % (5-12)
--- NOTE | 2017-01-11 06:11 | NUR ---
DR. GRIFFITH AT THE BED SIDE. WILL FOLLOW UP WITH ORDERS.
[2017-01-11 06:13] LABS: ANION GAP 15.1 (8-16); CARBON DIOXIDE 20.6 mmol/L (21-32); CREATININE 2.9 mg/dL (0.6-1.3); POTASSIUM 4.7 mmol/L (3.5-5.1)
[2017-01-11 06:17] LABS: PHOSPHORUS 4.3 mg/dL (2.5-4.9)
[2017-01-11] MEDS: BLOOD GLUCOSE MONITORING 1 DEV DEV FS SCH ×4 (07:01→20:08)
--- NOTE | 2017-01-11 07:20 | NUR ---
RECEIVED FROM NIGHT RN FOR CONTINUITY OF CARE. PATIENT IS AWAKE, ORIENTED TO PERSON, PLACE DATE AND TIME. SKIN WARM TO TOUCH WNL, THICKENED TOENAILS, BLE WITH EDEMA +3, NO HAIR GROWTH, BLE DRY AND FLAKY, UNABLE TO PALPATE BILATERAL PEDAL PULSES. ON 02 @ 2 LPM/NC. RIJ CENTRAL LINE PATENT AND INTACT. ON LEVOPHED DRIP AT 3 MCG/MIN. FC FR 16 PATENT AND INTACT TO LIGHT DEMETRA URINE IN MODERATE AMOUNT. WITH DRESSING TO LEFT FOOT DRY AND INTACT. NEEDS MAX ASSISTANCE IN TURNING. CALL LIGHT WITHIN REACH. WILL MONITOR PATIENT.
--- NOTE | 2017-01-11 07:20 | NUR ---
GAVE REPORT TO RODOLFO GUAJARDO FOR CONTINUITY OF CARE. PT IS IN STABLE CONDITION. CALL LIGHT IS IN REACH. BED IS TO THE LOWEST POSITION. BILATERAL S/R UP. ALL SAFETY PRECAUTIONS ARE IN PLACE.
[2017-01-11] MEDS: SKINTEGRITY HYDROGEL TP SCH (09:00)
[2017-01-11] MEDS: MEROPENEM 500 MG in NACL 0.9% 50 ML IV SCH ×2 (09:18→20:09)
[2017-01-11] MEDS: ASPIRIN 81 MG TAB.CHEW PO SCH (09:19)
[2017-01-11] MEDS: LACTOBACILLUS RHAMNOSUS GG 1 EACH CAP PO SCH (09:19)
[2017-01-11] MEDS: ATORVASTATIN 80 MG TAB PO SCH (09:20)
[2017-01-11] MEDS: APIXABAN 2.5 MG TAB PO SCH ×2 (09:21→20:34)
[2017-01-11] MEDS: ASCORBIC ACID 500 MG TAB PO SCH (09:21)
[2017-01-11] MEDS: ACETAMINOPHEN 325 MG TAB PO PRN (10:21)
--- NOTE | 2017-01-11 10:21 | NUR ---
PATIENT COMPLAINED OF HEADACHE, TYLENOL GIVEN PRN MED.
--- NOTE | 2017-01-11 10:50 | NUR ---
DR. JAMA IN AND SEEN PATIENT. NO NEW ORDERS MADE AT THIS TIME.
[2017-01-11] MEDS ORDERED: FERRIC GLUCONATE 125 MG in NACL 0.9% 100 ML IV SCH (11:00)
--- NOTE | 2017-01-11 13:15 | NUR ---
DR. CANO PODIATRIC RESIDENT AT BEDSIDE POLISH MAKER TO ATTEMPT HHN THERAPY AT A LATER TIME NO PULMONARY DISTRESS NOTED
--- NOTE | 2017-01-11 13:21 | NUR ---
RESIDENT PHYSICIAN, DR. CANO (PODIATRY) AT BEDSIDE CHANGING LEFT FOOT DRESSING. PATIENT TOLERATING PROCEDURE WELL.
--- NOTE | 2017-01-11 19:21 | NUR ---
REPORT GIVEN TO NIGHT RN FOR CONTINUITY OF CARE. PATIENT IS IN STABLE CONDITION.
--- NOTE | 2017-01-11 19:30 | NUR ---
RECEIVED REPORT FROM RODOLFO GUAJARDO. PT IS A/O X4. VERBALLY RESPONSIVE. ABLE TO COMMUNICATE NEEDS. NO C/O PAIN OR DISCOMFORT. BILATERAL PERRLA NOTED. ON 3 L NC. TOLERATED WELL. SR ON MONITOR. GENERALIZED WEAKNESS NOTED. REQUIRE EXTENSIVE ASSISTANCE. R IJ TRIPLE LUMEN CENTRAL LINE NOTED. INTACT AND PATENT. CONTINUE LEVOPHED ORDERED. TOLERATED WELL. BOWEL SOUNDS HEARD ON ALL QUADRANT. DONAHUE CATHETER NOTED. DRAINING CLOUDY YELLOW URINE. DRESSING NOTED ON LEFT LEG. DRESSING IS C/D/I. BLLE NOTED. DRY AND SCALY. WILL PERFORM TX ORDERED. SAFETY PRECAUTION MAINTAINED. BED AT LOWEST SETTING. CALL LIGHT WITHIN REACH. WILL CONTINUE TO MONITOR.
[2017-01-11] MEDS: MORPHINE SULFATE 2 MG/ML SYR IVP PRN (20:34)
--- NOTE | 2017-01-11 20:34 | NUR ---
MEDICATION ADMINISTERED ORDERED. TOLERATED WELL. WILL CONTINUE TO MONITOR. PT C/O 10/10 BACK PAIN. STATED SHE WANTS TO SIT AT EDGE OF BED. PROVIDED EDUCATION ON WHY THAT IS NOT SAFE D/T PT'S GENERALIZED WEAKNESS. OFFERED PAIN MEDICATION. MORPHINE GIVEN ORDERED. TOLERATED WELL. WILL CONTINUE TO MONITOR.
--- NOTE | 2017-01-11 21:00 | NUR ---
PT SLEEPING IN BED. TOLERATING WELL. NO S/SX OF ACUTE DISTRESS NOTED. NO C/O PAIN OR DISCOMFORT. WILL CONTINUE TO MONITOR FOR CHANGES.
--- NOTE | 2017-01-11 22:00 | NUR ---
PT SLEEPING IN BED. TOLERATING WELL. NO S/SX OF ACUTE DISTRESS NOTED. NO C/O PAIN OR DISCOMFORT. WILL CONTINUE TO MONITOR FOR CHANGES.
--- NOTE | 2017-01-11 23:00 | NUR ---
PT SLEEPING IN BED. TOLERATING WELL. NO S/SX OF ACUTE DISTRESS NOTED. NO C/O PAIN OR DISCOMFORT. WILL CONTINUE TO MONITOR FOR CHANGES. DRESSING CHANGE DONE ORDERED. TOLERATED WELL. WOUND HAD MINIMAL DRAINAGE.
[2017-01-12] VITALS (42 sets, daily range): BP systolic 98–142; BP diastolic 44–75
--- NOTE | 2017-01-12 | NUR ---
PT SLEEPING IN BED. TOLERATING WELL. NO S/SX OF ACUTE DISTRESS NOTED. NO C/O PAIN OR DISCOMFORT. WILL CONTINUE TO MONITOR FOR CHANGES.
[2017-01-12] MEDS ORDERED: INSULIN HUMAN REGULAR 100 UNITS in NACL 0.9% 100 ML IV SCH (00:40)
[2017-01-12] MEDS ORDERED: DEXTROSE 50% 50 ML SYR IVP PRN (00:40)
[2017-01-12] MEDS: HYDRAGUARD CREAM TP SCH ×2 (00:56→13:30)
[2017-01-12] MEDS: THERAHONEY GEL 42.5 GM TP SCH ×2 (00:56→13:30)
[2017-01-12] MEDS: NYSTATIN CRE 100 MU/GM 15 GM TUBE TP SCH ×2 (00:56→13:30)
--- NOTE | 2017-01-12 01:00 | NUR ---
PT SLEEPING IN BED. TOLERATING WELL. NO S/SX OF ACUTE DISTRESS NOTED. NO C/O PAIN OR DISCOMFORT. WILL CONTINUE TO MONITOR FOR CHANGES.
[2017-01-12] MEDS: ALBUTEROL SULFATE/IPRATROPIU 3 ML SOL IH SCH ×4 (01:21→19:00)
--- NOTE | 2017-01-12 02:00 | NUR ---
PT SLEEPING IN BED. TOLERATING WELL. NO S/SX OF ACUTE DISTRESS NOTED. NO C/O PAIN OR DISCOMFORT. WILL CONTINUE TO MONITOR FOR CHANGES. PT REFUSED TURNING AT THIS TIME. STATED SHE WAS JUST GETTING COMFORTABLE.
--- NOTE | 2017-01-12 03:00 | NUR ---
PROVIDED SIPS OF WATER REQUESTED. PT STATED RELIEF FROM THIRST. NO OTHER REQUEST AT THIS TIME, WILL CONTINUE TO MONITOR.
--- NOTE | 2017-01-12 04:00 | NUR ---
PT A/O X4. NO C/O PAIN OR DISCOMFORT. ASKED ABOUT TIME, STATED SHE'S GOING BACK TO SLEEP.
[2017-01-12] MEDS: NACL 0.9% 1,000 ML IV SCH ×3 (04:18→14:18)
--- NOTE | 2017-01-12 05:00 | NUR ---
PT SLEEPING IN BED. TOLERATING WELL. NO S/SX OF ACUTE DISTRESS NOTED. NO C/O PAIN OR DISCOMFORT. WILL CONTINUE TO MONITOR FOR CHANGES.
[2017-01-12 05:23] LABS: HEMATOCRIT 23.1 % (36-48); HEMOGLOBIN 7.3 g/dL (12.0-16.0); MEAN CORPUSCULAR HEMOGLOBIN 26 pg (27-31); MEAN CORPUSCULAR HGB CONC 32 g/dL (33-37); MEAN CORPUSCULAR VOLUME 84 fL (80-94); PLATELET COUNT (AUTO) 225 K/uL (140-450); RED BLOOD CELL COUNT(AUTO) 2.76 MIL/uL (4.20-5.40); RED CELL DISTRIBUTION WIDTH 17.1 % (11.6-13.7); WHITE BLOOD COUNT (AUTO) 24.8 K/uL (4.8-10.8)
--- NOTE | 2017-01-12 06:00 | NUR ---
PT STATED "I THINK I POOPED". CHECKED. PT HAD A MODERATE AMOUNT OF LIQUID STOOL. NO ABNORMAL ODOR NOTED. GERALD CARE GIVEN. BED SHEETS CHANGED. PT LEFT HIGH VILLEDA'S AND ON THE SIDE REQUESTED. WATER PROVIDED REQUESTED. WILL CONTINUE TO MONITOR.
[2017-01-12 06:01] LABS: ANION GAP 15.9 (8-16); CARBON DIOXIDE 18.2 mmol/L (21-32); POTASSIUM 4.1 mmol/L (3.5-5.1)
[2017-01-12 06:04] LABS: MAGNESIUM 1.9 mg/dL (1.8-2.4); PHOSPHORUS 4.6 mg/dL (2.5-4.9)
--- NOTE | 2017-01-12 07:00 | NUR ---
REPORT GIVEN TO RODOLFO GUAJARDO. PT IS STABLE.
--- NOTE | 2017-01-12 07:00 | NUR ---
RECEIVED REPORT FROM NIGHT RN FOR CONTINUITY OF CARE. PATIENT IS ASLEEP. RIJ CENTRAL LINE PATENT AND INTACT. FC 16FR PATENT AND INTACT TO YELLOW URINE IN SMALL AMOUNT. SKIN WARM TO TOUCH WNL, TOENAILS ARE THICKENED, WITH BLE EDEMA, BLE ARE DRY AND FLAKY, UNABLE TO PALPATE PEDAL. LEFT FOOT DRESSING DRY AND INTACT. PATIENT IS ABLE TO MAKE HER NEEDS KNOWN. CALL LIGHT WITH IN REACH. WILL MONITOR PATIENT.
[2017-01-12 07:06] LABS: EOSINOPHILS % (MANUAL) 1 % (0-4); LYMPHOCYTES % (MANUAL) 3 % (20-46); MONOCYTES % (MANUAL) 1 % (5-12)
[2017-01-12] MEDS: BLOOD GLUCOSE MONITORING 1 DEV DEV FS SCH ×4 (07:30→20:45)
--- NOTE | 2017-01-12 07:45 | NUR ---
LEVOPHED DRIP DECREASED TO 1 MCG/MIN AT THIS TIME. BP 111/57. WILL MONITOR PATIENT.
[2017-01-12] MEDS: SKINTEGRITY HYDROGEL TP SCH (09:00)
--- NOTE | 2017-01-12 09:15 | NUR ---
LEVOPHED DRIP STOPPED AT THIS TIME. BP 112/70 MMHG. WILL MONITOR PATIENT.
[2017-01-12] MEDS: MEROPENEM 500 MG in NACL 0.9% 50 ML IV SCH ×2 (09:17→20:45)
[2017-01-12] MEDS: LACTOBACILLUS RHAMNOSUS GG 1 EACH CAP PO SCH (09:18)
[2017-01-12] MEDS: ASCORBIC ACID 500 MG TAB PO SCH (09:18)
[2017-01-12] MEDS: APIXABAN 2.5 MG TAB PO SCH ×2 (09:19→20:44)
[2017-01-12] MEDS: ATORVASTATIN 80 MG TAB PO SCH (09:20)
[2017-01-12] MEDS: ASPIRIN 81 MG TAB.CHEW PO SCH (09:20)
[2017-01-12] MEDS ORDERED: VANCOMYCIN 1,250 MG in DEXTROSE 5% 500 ML IV SCH (10:00)
--- NOTE | 2017-01-12 11:00 | NUR ---
PATIENT SLEEPING AT THIS TIME.
[2017-01-12] MEDS: INSULIN LISPRO SLIDING SCALE 100 UNITS/ML VIAL SUBQ PRN ×2 (12:44→17:30)
--- NOTE | 2017-01-12 14:00 | NUR ---
PATIENT SLEEPING AT THIS TIME. V/S STABLE
--- NOTE | 2017-01-12 20:35 | NUR ---
DR. HARRELL HERE MADE AWARE OUTPUT DURING THE DAY TIME 200 ML ONLY,
[2017-01-12] MEDS ORDERED: COLISTIMETHATE SODIUM 150 MG in NACL 0.9% 100 ML IV SCH (20:50)
--- NOTE | 2017-01-12 21:29 | NUR ---
REPORT GIVEN TO NIGHT RN FOR CONTINUITY OF CARE. PATIENT IN STABLE CONDITION.
--- NOTE | 2017-01-12 21:31 | NUR ---
RECEIVED PT AAO, ON O2 N/C AT 2L/MIN WITH HUMIDIFIER, O2 SAT 99, REPOSITIONED WITH THE HELP OF TWO NURSES, OFFLOAD PRESSURE, PILLOW ON BACK AND BOTH LEGS, NOTED DONAHUE INTACT DRAINING TO A YELLOW URINE,DRYNESS AND EDEMA NOTED ON BOTH LOWER EXTREMITIES, DRESSING INTACT ON LEFT FOOT, NOTED ALSO DISCOLORATION ON TOE NAILS, R IJ CENTRAL LINE INTACT, FLUSHED WITH 10ML NS EACH PROT NOTED WITH GOOD BLOOD RETURN, DRY PILLOW CASE ON BOTH UNDER BREAST AND ABDOMINAL FOLDS, CALL LIGHT WITHIN EASY REACH
[2017-01-12] MEDS: HYDROcodone/APAP 7.5/325 MG 1 TAB PO PRN (21:50)
--- NOTE | 2017-01-12 22:36 | NUR ---
RELAYED TO MD BY CHARGE NURSE CARDIAC RHYTHM MD KORY WITH ORDER, PT SLEEPING AT THIS TIME
--- NOTE | 2017-01-12 22:57 | NUR ---
RT AT BEDSIDE DOING EKG
--- NOTE | 2017-01-12 23:02 | NUR ---
RELAYED BY CHARGE NURSE TO DR. JENKINS RESULT OF EKG SR WITH AV DISSOCIATION AND ACCELERATED JUNCTIONAL RHYTHM, NO ORDERS MADE.
--- NOTE | 2017-01-12 23:08 | NUR ---
DR. JENKINS HERE, MD CHECKING EKG RESULT, ALSO MADE AWARE THE URINE OUTPUT IN DAY TIME AND WILL UPDATE MD LATER WITH THE LATEST URINE OUTPUT
[2017-01-12] MEDS ORDERED: COLISTIMETHATE SODIUM 150 MG VIAL ONE (23:52)
[2017-01-13] VITALS (7 sets, daily range): BP systolic 93–112; BP diastolic 47–60
[2017-01-13] MEDS: NACL 0.9% 1,000 ML IV SCH ×4 (00:07→23:21)
[2017-01-13] MEDS: HYDRAGUARD CREAM TP SCH ×2 (00:23→12:51)
[2017-01-13] MEDS: THERAHONEY GEL 42.5 GM TP SCH ×2 (00:24→12:51)
[2017-01-13] MEDS: NYSTATIN CRE 100 MU/GM 15 GM TUBE TP SCH ×2 (00:24→12:51)
--- NOTE | 2017-01-13 00:30 | NUR ---
EXPLAINED TO PT NEED TO CHANGE DRESSING ON LEFT FOOT , PT REFUSED EVEN EXPLAINED IMPORTANCE, PT AAO, VITAL SIGN STABLE.
--- NOTE | 2017-01-13 01:35 | NUR ---
INTERDRY APPLIED ON BOTH UNDER BREAST AND ABDOMINAL FOLDS, WELL TOLERATED
[2017-01-13] MEDS: ALBUTEROL SULFATE/IPRATROPIU 3 ML SOL IH SCH ×4 (01:46→19:21)
--- NOTE | 2017-01-13 01:48 | NUR ---
RT AT BEDSIDE
--- NOTE | 2017-01-13 02:41 | NUR ---
PT SLEEPING ABLE TO WAKE UP UPON HEARING THE DOOR OPEN, PT ASKED FOR WATER, PT AAO, ON O2 AT 2L/MIN.
--- NOTE | 2017-01-13 04:00 | NUR ---
CENTRAL LINE DRESSING CHANGE DONE USING STERILE TECHNIQUE, PT COOPERATIVE, NO SOB NOTED
[2017-01-13 05:55] LABS: ANION GAP 14.1 (8-16); CARBON DIOXIDE 19.9 mmol/L (21-32); CREATININE 3.3 mg/dL (0.6-1.3)
[2017-01-13 05:59] LABS: MAGNESIUM 1.9 mg/dL (1.8-2.4); PHOSPHORUS 4.7 mg/dL (2.5-4.9)
--- NOTE | 2017-01-13 06:05 | NUR ---
DR. FLEMING AWARE URINE OUTPUT ONLY 200
[2017-01-13 06:06] LABS: BASOPHILS # (AUTO) 0.2 K/uL (0.00-0.22); BASOPHILS % (AUTO) 1.2 % (0.0-2.0); EOSINOPHILS # (AUTO) 0.3 K/uL (0-0.4); HEMATOCRIT 22.5 % (36-48); HEMOGLOBIN 7.4 g/dL (12.0-16.0); LYMPHOCYTES # (AUTO) 1.6 K/uL (2.5-16.5); LYMPHOCYTES % (AUTO) 11.1 % (20.5-51.1); MEAN CORPUSCULAR HEMOGLOBIN 28 pg (27-31); MEAN CORPUSCULAR HGB CONC 33 g/dL (33-37); MEAN CORPUSCULAR VOLUME 84 fL (80-94); MONOCYTES # (AUTO) 0.5 K/uL (0.8-1.0); MONOCYTES % (AUTO) 3.5 % (1.7-9.3); NEUTROPHILS # (AUTO) 12.3 K/uL (1.8-7.7); NEUTROPHILS % (AUTO) 82.2 % (42.2-75.2); PLATELET COUNT (AUTO) 202 K/uL (140-450); RED BLOOD CELL COUNT(AUTO) 2.67 MIL/uL (4.20-5.40); RED CELL DISTRIBUTION WIDTH 16.9 % (11.6-13.7)
[2017-01-13] MEDS: BLOOD GLUCOSE MONITORING 1 DEV DEV FS SCH ×4 (07:08→21:26)
--- NOTE | 2017-01-13 07:08 | NUR ---
PT SLEEPING AT THIS TIME, VITAL SIGN STABLE, WILL ENDORSED TO INCOMING SHIFT
--- NOTE | 2017-01-13 07:15 | NUR ---
TALKED TO DR. GALE REGARDING WEIGHT OF THE PT AND URINE OUTPUT.
[2017-01-13 07:16] LABS: WHITE BLOOD COUNT (AUTO) 14.9 K/uL (4.8-10.8)
--- NOTE | 2017-01-13 07:23 | NUR ---
ENDORSED TO INCOMING NURSE PT SLEEPING AT THIS TIME, AND NEED TO FOLLOW UP REGARDING BONE SCAN AND TO RELAY TO MD AGAIN REGARDING LOW URINE OUTPUT
--- NOTE | 2017-01-13 07:24 | NUR ---
RECEIVED REPORT FROM RODOLFO DIAZ. PT SEEN AT BEDSIDE SLEEPING. PT IS AAOX3, AROUSABLE TO NAME AND LIGHT SHAKING. PT ON 2L O2 VIA NC. AUDIBLE WHEEZES HEARD IN BILATERAL LOBES. PT ON SET STAFF FITTER RUNNING SR AT THIS TIME. HR IS 69. RIGHT IJ TLC PATENT AND INTACT. BLOOD RETURN VISIBLE IN ALL PORTS. BOWEL SOUNDS PRESENT IN ALL FOUR QUADRNTS. PT HAS DONAHUE DRAINING CLEAR, YELLOW URINE. PT HAS LEFT FOOT DM ULCER COVERED WITH DRESSING AT THIS TIME. PT HAS GENERALIZED NON PITTING EDEMA. BLE HAS REDNESS AND CELLULITIS. PT HAS SEVERE GENERALIZED WEAKNESS IN X4 EXTREMITIES. SAFETY MEASURES CHECKED, CALL LIGHT LEFT AT BEDSIDE. WILL CONTINUE TO MONITOR.
[2017-01-13] MEDS: COLISTIMETHATE SODIUM 150 MG VIAL IH SCH ×2 (07:41→19:21)
--- NOTE | 2017-01-13 07:45 | NUR ---
CALLED RADIOLOGY TO ASK WHEN PT'S BONE SCAN IS SCHEDULED. RADIOLOGY SAID THEY WILL FIND OUT AND CALL BACK.
--- NOTE | 2017-01-13 07:55 | NUR ---
NOTIFIED DR CASTORENA THAT PATIENT OUTPUT FOR WHOLE QUICK SKETCH ARTIST (12 HRS) HAS BEEN 200ML AND PT HAS BEEN RECEIVING AT LEAST 1200 CC EVERY SHIFT. ALSO NOTIFIED MD OF PT'S BUN 56 AND CREATININE 3.3, WHICH IS WORSE THAN THE PREVIOUS DAY. DR CASTORENA AT BEDSIDE EVALUATING PT. WILL FOLLOW UP ON ORDERS.
[2017-01-13] MEDS: ASPIRIN 81 MG TAB.CHEW PO SCH (08:19)
[2017-01-13] MEDS: LACTOBACILLUS RHAMNOSUS GG 1 EACH CAP PO SCH (08:19)
[2017-01-13] MEDS: ASCORBIC ACID 500 MG TAB PO SCH (08:19)
[2017-01-13] MEDS: ATORVASTATIN 80 MG TAB PO SCH (08:20)
[2017-01-13] MEDS: MEROPENEM 500 MG in NACL 0.9% 50 ML IV SCH ×2 (08:23→21:26)
[2017-01-13] MEDS: APIXABAN 2.5 MG TAB PO SCH ×2 (08:24→21:29)
[2017-01-13] MEDS: SKINTEGRITY HYDROGEL TP SCH (08:25)
--- NOTE | 2017-01-13 08:33 | NUR ---
ADMINISTERED ROUTINE MEDICATIONS WITH EDUCATION. PT VERBALIZED UNDERSTANDING. PT REPORTS THAT BACK IS HURTING 09/04. REPOSITIONED PT FOR COMFORT. PT STATED RELIEF AFTER REPOSITIONING. WILL CONTINUE TO MONITOR.
--- NOTE | 2017-01-13 09:02 | NUR ---
PAGED DR CASTORENA TO CLARIFY US ABD ORDER.
--- NOTE | 2017-01-13 09:19 | NUR ---
PER DR. CASTORENA, PLEASE GET US OF ABD. CALLED US TO CLARIFY, BUT US TECH IS BUSY AT THE MOMENT. WILL HAVE US TECH CALL ICU BACK.
--- NOTE | 2017-01-13 09:22 | NUR ---
RECEIVED CALL FROM NUCLEAR MED. SHE WILL COME IN TO DO THE FIRST PART OF THE BONE SCAN IN ABOUT A HOUR.
--- NOTE | 2017-01-13 09:31 | NUR ---
PER TERESITA, NUCLEAR MED, SINCE PT HAD A DEBRIDEMENT DONE ON 01/10/17 AND WOUND HAS NOT HEALED YET, DOING THE BONE SCAN WILL SHOW A FALSE POSITIVE IN THE TEST BECAUSE THE RADIOACTIVE ISOTOPES ARE DRAWN TO THE NEWLY DEBRIDED WOUND. THE OTHER OPTION IS TO DO A MRI FOR THE PATIENT. IT IS BEST NOT TO DO THE BONE SCAN AT THIS TIME BECAUSE IT WOULD JUST SHOW A FALSE POSITIVE. WILL LET ORDERING MD KNOW.
--- NOTE | 2017-01-13 09:58 | NUR ---
PHYSICAL THERAPY AT BEDSIDE EVALUATING PATIENT.
--- NOTE | 2017-01-13 10:00 | NUR ---
PT TURNED AND REPOSITIONED FOR COMFORT WITH PT. WILL CONTINUE TO MONITOR.
--- NOTE | 2017-01-13 10:40 | NUR ---
DR GRIFFITH AT BEDSIDE ASSESSING PATIENT. UPDATED MD ON PATIENT CONDITION. WILL FOLLOW UP ON ORDERS.
[2017-01-13] MEDS: FERRIC GLUCONATE 125 MG in NACL 0.9% 100 ML IV SCH (10:55)
--- NOTE | 2017-01-13 10:57 | NUR ---
RECEIVED CALL FROM LAB, LEFT FOOT WOUND MDRO FORMULATOR COMPOUNDER ACINETOBACTER BAUMANNII.
--- NOTE | 2017-01-13 11:05 | NUR ---
US TECH AT BEDSIDE PERFORMING US COMPLLETE ABD.
--- NOTE | 2017-01-13 11:07 | NUR ---
NOTIFIED DR CASTORENA OF LEFT FOOT WOUND CULTURE, RESULT SAME FIRST LEFT FOOT WOUND CULTURE. NO CHANGE IN ORDERS AT THIS TIME.
--- NOTE | 2017-01-13 11:37 | NUR ---
PAGED DR HARRELL.
--- NOTE | 2017-01-13 11:50 | NUR ---
OFFERED PATIENT LUNCH TRAY. PER PATIENT, SHE WOULD LIKE TO EAT LATER. WILL CONTINUE TO MONITOR.
--- NOTE | 2017-01-13 12:25 | NUR ---
RECEIVED CALL FROM TERESITA, NUCLEAR MED, ASKING IF SHE CAN CANCEL BONE SCAN ORDER. DR HARRELL PAGED AGAIN.
--- NOTE | 2017-01-13 12:30 | NUR ---
01/13/17 RD FOLLOW-UP ASSESSMENT COMPLETED PLEASE REFER TO NUTRITION ASSESSMENT UNDER CARE ACTIVITY FOR ESTIMATED NUTRITIONAL NEEDS. 1. CONTINUE 60G CONSISTENT CARBOHYDRATE DIET 2. CONTINUE VITAMIN C 3. ADD DIET HEALTH SHAKE TID (FOR POOR PO INTAKE & POOR APPETITE) 4. RD TO FOLLOW-UP 2-3 DAYS, HIGH RISK KARLI FUENTES, RYAN
--- NOTE | 2017-01-13 12:36 | NUR ---
RECEIVED CALLBACK FROM DR. HARRELL. EXPLAINED TO DR HARRELL THAT BONE SCAN WILL SHOW A FALSE POSITIVE BECAUSE OF PT'S RECENT DEBRIDEMENT ON LEFT FOOT. MD STATED HE STILL WANTS BONE SCAN DONE. ALSO TOLD MD THAT PT'S KIDNEY FUNCTION IS GETTING WORSE, AND PER DR GRIFFITH, HE SHOULD REVIEW THE ANTIBIOTICS THAT THE PATIENT IS GETTING. MD AWARE. CALLED TERESITA, NUCLEAR MED, TO EXPLAIN THAT DR HARRELL STILL WANTS THE BONE SCAN DONE DESPITE THE CHANCE OF GETTING A FALSE POSITIVE RESULT. PER TERESITA, SHE DOES NOT HAVE TIME TODAY AND PT DOES NOT NEED PREPPING DONE PRIOR TO BONE SCAN. TERESITA SAID BONE WILL BE DONE TOMORROW.
--- NOTE | 2017-01-13 13:40 | NUR ---
DR. CASTORENA AT NURSING STATION. NOTIFIED THAT PATIENT HAS 45ML URINE SINCE THIS MORNING SHIFT. ALSO NOTIFIED DR CASTORENA THAT DR GRIFFITH AND DR HARRELL ARE AWARE AND THAT DR HARRELL WILL REVIEW THE ANTIBIOTICS.
--- NOTE | 2017-01-13 13:55 | NUR ---
PT'S SISTER IN LAW AT BEDSIDE. PT ATE 50% OF LUNCH. REPOSITIONED PT FOR COMFORT. WILL CONTINUE TO MONITOR.
--- NOTE | 2017-01-13 15:09 | NUR ---
DR CANO AT PT'S BEDSIDE PERFORMING DRESSING CHANGE. UPDATED MD ON PATIENT CONDITION. WILL CONTINUE TO MONITOR
--- NOTE | 2017-01-13 16:00 | NUR ---
PT SLEEPING AT THIS TIME. NO S/S DISTRESS OR SOB NOTED. PT TURNED AND REPOSITIONED FOR COMFORT. WILL CONTINUE TO MONITOR.
--- NOTE | 2017-01-13 16:48 | NUR ---
DR THAPA AT NURSING STATION. UPDATED MD ON PATIENT CONDITION. NO NEW ORDERS AT THIS TIME.
--- NOTE | 2017-01-13 17:20 | NUR ---
US LEFT FOOT COMPLETED BY US TECH. WOUND CLEANED AND DRESSING CHANGED.
[2017-01-13] MEDS: HYDROcodone/APAP 7.5/325 MG 1 TAB PO PRN (17:50)
--- NOTE | 2017-01-13 17:50 | NUR ---
PT TURNED AND REPOSITIONED FOR COMFORT. WILL CONTINUE TO MONITOR.
--- NOTE | 2017-01-13 17:51 | NUR ---
PT C/O LEG PAIN 11/04. PAIN MEDICATION ADMINISTERED WITH EDUCATION. PT VERBALIZED UNDERSTANDING. WILL CONTINUE TO MONITOR.
--- NOTE | 2017-01-13 18:32 | NUR ---
ASSISTED PATIENT WITH DINNER TRAY. PT ATE 50% OF DINNER TRAY.
[2017-01-13] MEDS ORDERED: SODIUM PHOS / POTASSIUM PHOS 1 PKT PDR PO SCH (18:34)
--- NOTE | 2017-01-13 18:51 | NUR ---
PT SLEEPING AT THIS TIME. NO S/S DISTRESS OR SOB. WILL CONTINUE TO MONITOR.
--- NOTE | 2017-01-13 19:07 | NUR ---
DR LEWIS AT BEDSIDE CHANGING PT'S DRESSING. UPDATED MD ON PATIENT CONDITION. MD AWARE THAT DR HARRELL STILL WANTS BONE SCAN ALTHOUGH IT WILL RESULT A FALSE POSITIVE D/T RECENT DEBRIDEMENT. WILL FOLLOW UP ON ANY ORDERS.
--- NOTE | 2017-01-13 19:29 | NUR ---
ENDORSED PLAN OF CARE TO RODOLFO MCKEON. NOTIFIED RN THAT BONE SCAN WILL BE DONE TOMORROW BECAUSE TERESITA, NUCLEAR MED, IS UNABLE TO COME TODAY. DR HARRELL ALSO AWARE THAT BONE SCAN WILL RESULT FALSE POSITIVE BECAUSE PT HAD A RECENT DEBRIDEMENT AND THAT PT HAS WORSENING KIDNEY FUNCTION, AND NOTIFIED MD THAT HE SHOULD REVIEW THE ANTIBIOTICS. PT SLEEPING, NO S/S DISTRESS OR SOB AT THIS TIME.
--- NOTE | 2017-01-13 19:30 | NUR ---
DR. LEWIS HERE, PER MD DO NOT DO DRESSING CHANGE TONIGHT , PER MD HE JUST DID IT AND HE WILL ASK THE RESIDENT TO DO DRESSING CHANGE IN DAY TIME
--- NOTE | 2017-01-13 21:30 | NUR ---
DR. HARRELL AT BEDSIDE
--- NOTE | 2017-01-13 22:00 | NUR ---
talked to Dr. Bernal, regarding scanty urine output and bun, and high BUN and creatinine levels and very low GFR, stated will do Nephro consult tomoprrow.
[2017-01-14] MEDS: HYDROcodone/APAP 7.5/325 MG 1 TAB PO PRN ×2 (00:32→10:41)
[2017-01-14] MEDS: HYDRAGUARD CREAM TP SCH ×2 (00:43→12:00)
[2017-01-14] MEDS: NYSTATIN CRE 100 MU/GM 15 GM TUBE TP SCH ×2 (00:44→12:01)
[2017-01-14] MEDS: THERAHONEY GEL 42.5 GM TP SCH ×2 (00:48→12:01)
[2017-01-14] MEDS: ALBUTEROL SULFATE/IPRATROPIU 3 ML SOL IH SCH ×4 (01:08→19:18)
[2017-01-14 04:00] VITALS: BP 93/55
[2017-01-14 05:08] LABS: BASOPHILS # (AUTO) 0.1 K/uL (0.00-0.22); BASOPHILS % (AUTO) 0.9 % (0.0-2.0); EOSINOPHILS # (AUTO) 0.3 K/uL (0-0.4); EOSINOPHILS % (AUTO) 1.9 % (0.0-4.0); HEMATOCRIT 24.1 % (36-48); HEMOGLOBIN 7.6 g/dL (12.0-16.0); LYMPHOCYTES # (AUTO) 1.2 K/uL (2.5-16.5); LYMPHOCYTES % (AUTO) 8.1 % (20.5-51.1); MEAN CORPUSCULAR HEMOGLOBIN 27 pg (27-31); MEAN CORPUSCULAR HGB CONC 32 g/dL (33-37); MEAN CORPUSCULAR VOLUME 84 fL (80-94); MONOCYTES # (AUTO) 0.5 K/uL (0.8-1.0); MONOCYTES % (AUTO) 3.3 % (1.7-9.3); NEUTROPHILS # (AUTO) 12.3 K/uL (1.8-7.7); NEUTROPHILS % (AUTO) 85.8 % (42.2-75.2); PLATELET COUNT (AUTO) 205 K/uL (140-450); RED BLOOD CELL COUNT(AUTO) 2.87 MIL/uL (4.20-5.40); RED CELL DISTRIBUTION WIDTH 16.6 % (11.6-13.7)
[2017-01-14 06:20] LABS: FOLIC ACID 2.4 ng/mL (>3.0)
[2017-01-14 06:31] LABS: ANION GAP 14.6 (8-16); CARBON DIOXIDE 18.6 mmol/L (21-32); CREATININE 3.6 mg/dL (0.6-1.3); POTASSIUM 4.2 mmol/L (3.5-5.1)
[2017-01-14] MEDS: BLOOD GLUCOSE MONITORING 1 DEV DEV FS SCH ×4 (06:44→21:35)
[2017-01-14] MEDS: COLISTIMETHATE SODIUM 150 MG VIAL IH SCH ×2 (07:10→19:19)
--- NOTE | 2017-01-14 07:25 | NUR ---
RECEIVED REPORT FROM RODOLFO MCKEON. PT SEEN AT BEDSIDE SLEEPING. ON 2L O2 VIA NC; NO S/S DISTRESS OR SOB AT THIS TIME, SATTING AT 97%. ON OVERNIGHT STOCKER RUNNING AF AT THIS TIME. HR AT 79. PT HAS RIJ TLC RUNNING NS. CENTRAL LINE IS INTACT AND PATENT; BLOOD RETURN VISIBLE IN ALL PORTS. PATIENT IS MORBIDLY OBESE, AUDIBLE BS IN X4 QUADRANTS. PT HAS DONAHUE CATHETER DRAINING YELLOW URINE WITH VISIBLE SEDIMENT. LEFT FOOT WOUND IS COVERED IN DRESSING. NO DRAINAGE NOTED AT THIS TIME. BLE HAVE DRY, SCALY SKIN. REDNESS NOTED ON LLE. ABD FOLDS HAVE REDNESS NOTED. PT HAS SEVERE GENERALIZED WEAKNESS. PT DOES NOT WANT TO EAT BREAKFAST TRAY AT THIS TIME. SAFETY MEASURES CHECKED CALL LIGHT LEFT AT BEDSIDE. WILL CONTINUE TO MONITOR.
[2017-01-14 08:00] VITALS: BP 119/64
[2017-01-14 08:08] LABS: WHITE BLOOD COUNT (AUTO) 14.4 K/uL (4.8-10.8)
[2017-01-14] MEDS: MEROPENEM 500 MG in NACL 0.9% 50 ML IV SCH ×2 (08:13→21:56)
[2017-01-14] MEDS: SKINTEGRITY HYDROGEL TP SCH (08:14)
[2017-01-14] MEDS: ASPIRIN 81 MG TAB.CHEW PO SCH (08:14)
[2017-01-14] MEDS: ASCORBIC ACID 500 MG TAB PO SCH (08:14)
[2017-01-14] MEDS: LACTOBACILLUS RHAMNOSUS GG 1 EACH CAP PO SCH (08:14)
[2017-01-14] MEDS: ATORVASTATIN 80 MG TAB PO SCH (08:15)
[2017-01-14] MEDS: APIXABAN 2.5 MG TAB PO SCH (08:17)
--- NOTE | 2017-01-14 08:20 | NUR ---
ROUTINE MEDICATIONS GIVEN WITH EDUCATION. PT VERBALIZED UNDERSTANDING. DR CASTORENA AND RESIDENTS AT PT BEDSIDE. UPDATED MD ON PATIENT CONDITION. WILL FOLLOW UP ON ORDERS. PT TURNED AND REPOSITIONED FOR COMFORT. WILL CONTINUE TO MONITOR.
[2017-01-14] MEDS: NACL 0.9% 1,000 ML IV SCH (09:15)
--- NOTE | 2017-01-14 10:02 | NUR ---
PT AT BEDSIDE. WILL CONTINUE TO MONITOR.
--- NOTE | 2017-01-14 10:10 | NUR ---
PT TURNED AND REPOSITIONED FOR COMFORT. WILL CONTINUE TO MONITOR.
--- NOTE | 2017-01-14 10:41 | NUR ---
PAIN MEDICATION ADMINISTERED FOR 7/10 LEG PAIN. WILL CONTINUE TO MONITOR.
--- NOTE | 2017-01-14 10:46 | NUR ---
WASTED 100MG COLACE 1 GEL CAPSULE BECAUSE PT REFUSED. SHE STATED, "I DON'T WANT TO POOP ANYMORE". EXPLAINED RISKS ASSOCIATED WITH CONSTIPATION IN THE HOSPITAL. PT VERBALIZED UNDERSTANDING BUT STILL WANTED TO REFUSE THE MEDICATION.
--- NOTE | 2017-01-14 11:17 | NUR ---
NASEEM NUCLEAR MED HERE TO TAKE PATIENT FOR BONE SCAN. PT REFUSING TO GO GET BONE SCAN. EDUCATED PATIENT ON RISKS OF NOT HAVING BONE SCAN DONE. PT VERBALIZED UNDERSTANDING, BUT STILL REFUSING BONE SCAN. DR HARRELL AND DR RAFFAELE CARDENAS.
--- NOTE | 2017-01-14 11:20 | NUR ---
DR CASTORENA TALKING WITH PATIENT. PER PATIENT, SHE WILL TRY TO GET BONE SCAN DONE.
--- NOTE | 2017-01-14 11:25 | NUR ---
PT OFF UNIT FOR BONE SCAN
[2017-01-14 12:00] VITALS: BP 117/54
[2017-01-14] MEDS: FERRIC GLUCONATE 125 MG in NACL 0.9% 100 ML IV SCH (12:00)
--- NOTE | 2017-01-14 12:00 | NUR ---
PT BACK FROM BONE SCAN. UNABLE TO GET COMPLETE PICTURES BECAUSE PATIENT UNABLE TO TOLERATE LYING FLAT. DR CASTORENA AWARE AND DR HARRELL AWARE.
[2017-01-14] MEDS ORDERED: FUROSEMIDE 20 MG/2 ML VIAL IVP SCH ×2 (12:44→13:14)
--- NOTE | 2017-01-14 13:30 | NUR ---
DR JEWELL AT NURSING STATION. UPDATED MD ON PATIENT CONDITION. PER MD, FLUSH DONAHUE AND INSERT NEW DONAHUE IF NEEDED, BLADDER SCAN, THEN ADMINISTER 60MG LASIX. WILL FOLLOW UP ON ORDERS.
--- NOTE | 2017-01-14 13:40 | NUR ---
UNABLE TO FLUSH DONAHUE, NEW DONAHUE INSERTED.
[2017-01-14] MEDS ORDERED: SODIUM BICARBONATE 650 MG TAB PO SCH (13:45)
--- NOTE | 2017-01-14 13:50 | NUR ---
LINEN CHANGED AND BED BATH GIVEN. PT REPOSITIONED FOR COMFORT. WILL CONTINUE TO MONITOR.
--- NOTE | 2017-01-14 14:10 | NUR ---
BLADDER SCAN SHOWS 0 URINE.
--- NOTE | 2017-01-14 14:12 | NUR ---
LASIX AND SODIUM BICARB ADMINISTERED WITH EDUCTION. PT VERBALIZED UNDERSTANDING. WILL CONTINUE TO MONITOR.
[2017-01-14 16:00] VITALS: BP 94/47
--- NOTE | 2017-01-14 16:00 | NUR ---
PT TURNED AND REPOSITIONED FOR COMFORT. WILL CONTINUE TO MONITOR.
--- NOTE | 2017-01-14 18:22 | NUR ---
PT REQUESTS TO BE SUPINE AT THIS TIME. ASSISTED WITH DINNER TRAY. PT ATE 75% OF DINNER TRAY.
[2017-01-14 20:00] VITALS: BP 105/57
[2017-01-14 20:55] LABS: ANION GAP 14.7 (8-16); CARBON DIOXIDE 19.6 mmol/L (21-32); CREATININE 3.7 mg/dL (0.6-1.3); POTASSIUM 4.3 mmol/L (3.5-5.1)
--- NOTE | 2017-01-14 21:30 | NUR ---
critical lab report received on [facility] hi , 61, DR. YESI Brooks responded, stated with BMP result at 5 am, call him only if potassium is 6 and up, dont call him for high BUN,
[2017-01-14] MEDS: SODIUM BICARBONATE 650 MG TAB PO SCH (21:55)
[2017-01-14] MEDS ORDERED: FUROSEMIDE 100 MG/10 ML VIAL IV SCH (22:20)
[2017-01-15] VITALS (7 sets, daily range): BP systolic 117–131; BP diastolic 54–82
[2017-01-15] MEDS: THERAHONEY GEL 42.5 GM TP SCH ×3 (01:05→23:58)
[2017-01-15] MEDS: HYDRAGUARD CREAM TP SCH ×3 (01:06→23:58)
[2017-01-15] MEDS: NYSTATIN CRE 100 MU/GM 15 GM TUBE TP SCH ×3 (01:06→23:57)
[2017-01-15] MEDS: ALBUTEROL SULFATE/IPRATROPIU 3 ML SOL IH SCH ×4 (01:22→21:28)
[2017-01-15] MEDS: HYDROcodone/APAP 7.5/325 MG 1 TAB PO PRN (02:45)
--- NOTE | 2017-01-15 03:37 | NUR ---
PATIENT REFUSED BED BATH THIS AM,
[2017-01-15 05:13] LABS: BASOPHILS # (AUTO) 0.1 K/uL (0.00-0.22); EOSINOPHILS # (AUTO) 0.4 K/uL (0-0.4); EOSINOPHILS % (AUTO) 2.6 % (0.0-4.0); HEMATOCRIT 24.5 % (36-48); HEMOGLOBIN 7.8 g/dL (12.0-16.0); LYMPHOCYTES # (AUTO) 1.1 K/uL (2.5-16.5); LYMPHOCYTES % (AUTO) 8.1 % (20.5-51.1); MEAN CORPUSCULAR HEMOGLOBIN 27 pg (27-31); MEAN CORPUSCULAR HGB CONC 32 g/dL (33-37); MEAN CORPUSCULAR VOLUME 83 fL (80-94); MONOCYTES # (AUTO) 0.5 K/uL (0.8-1.0); MONOCYTES % (AUTO) 3.4 % (1.7-9.3); NEUTROPHILS # (AUTO) 11.5 K/uL (1.8-7.7); PLATELET COUNT (AUTO) 230 K/uL (140-450); RED BLOOD CELL COUNT(AUTO) 2.95 MIL/uL (4.20-5.40); RED CELL DISTRIBUTION WIDTH 16.8 % (11.6-13.7); WHITE BLOOD COUNT (AUTO) 13.6 K/uL (4.8-10.8)
[2017-01-15 05:27] LABS: PROTHROMBIN TIME 13.7 secs (10.8-13.4)
[2017-01-15 05:47] LABS: ANION GAP 17.2 (8-16); CARBON DIOXIDE 18.1 mmol/L (21-32); CREATININE 3.8 mg/dL (0.6-1.3); POTASSIUM 4.3 mmol/L (3.5-5.1)
[2017-01-15 05:50] LABS: MAGNESIUM 1.9 mg/dL (1.8-2.4); PHOSPHORUS 5.8 mg/dL (2.5-4.9)
[2017-01-15] MEDS ORDERED: HYDROmorphone 1 MG/ML AMP IVP SCH (06:15)
[2017-01-15] MEDS ORDERED: LORazepam 2 MG/ML VIAL IVP SCH (06:15)
[2017-01-15] MEDS: BLOOD GLUCOSE MONITORING 1 DEV DEV FS SCH ×4 (06:55→20:31)
--- NOTE | 2017-01-15 07:29 | NUR ---
LAB CALLED FOR CRITICAL VAUE, ARABELLA 62, DID MOT HAVE TO CALL md SINCE dR. Emanuel Brown STATED YESTERDAY NOT TO CALL HIM FOR HIGH bUN BUT CALL HIM ONLY IF POTASSIUM IS 6 AND ABOVE
--- NOTE | 2017-01-15 07:31 | NUR ---
TURNED OVER CARE TO [facility].
--- NOTE | 2017-01-15 07:40 | NUR ---
RECEIVED REPORT FROM MIKE. PT IS AWAKE AND ALERT. ABLE TO MAKE NEEDS KNOWN. ON O2 2LPM/NC, O2 SAT 97%. CENTRAL LINE AT RIGHT IJ TLC FLUSHED AND GOOD BLOOD RETURN NOTED. DRESSING CLEAN, DRY AND INTACT. PT IS MORBIDLY OBESE. REDNESS NOTED UNDER ABDOMINAL FOLDS. DONAHUE CATH IN PLACE, DRAINING YELLOW URINE, SEDIMENTS NOTED. HOB AT 30 DEGREE, BED IN LOWEST POSITION AND CALL LIGHT WITHIN REACH. WILL CONTINUE TO MONITOR.
[2017-01-15] MEDS: COLISTIMETHATE SODIUM 150 MG VIAL IH SCH ×2 (07:54→21:27)
[2017-01-15 07:59] LABS: NEUTROPHILS % (AUTO) 84.9 % (42.2-75.2)
--- NOTE | 2017-01-15 08:45 | NUR ---
ATIVAN HELD PER PHYSICIAN PERFORMING DARRELL LINE INSERTION. ATIVAN WASTED, WITNESSED BY CHARGE NURSE.
[2017-01-15] MEDS: ASCORBIC ACID 500 MG TAB PO SCH (09:00)
[2017-01-15] MEDS: ATORVASTATIN 80 MG TAB PO SCH (09:00)
[2017-01-15] MEDS: SKINTEGRITY HYDROGEL TP SCH (09:00)
[2017-01-15] MEDS: SODIUM BICARBONATE 650 MG TAB PO SCH ×2 (09:00→21:18)
[2017-01-15] MEDS: LACTOBACILLUS RHAMNOSUS GG 1 EACH CAP PO SCH (09:00)
[2017-01-15] MEDS: ASPIRIN 81 MG TAB.CHEW PO SCH (09:00)
--- NOTE | 2017-01-15 09:00 | NUR ---
MORNING MEDICATIONS NOT GIVEN BECAUSE PT IS IN A PROCEDURE AND RECEIVED SEDATION. PT IS CURRENTLY DROWSY AND HAVE ALTERED LEVEL OF CONSCIOUSNESS.
--- NOTE | 2017-01-15 10:30 | NUR ---
REPOSITIONED PT. PT COMPLAINED OF SOB. RT NOTIFIED.
--- NOTE | 2017-01-15 10:37 | NUR ---
CALLED TO BEDSIDE BY RN SAYS PT COMPLAIN OF SOB PT REFUSED
--- NOTE | 2017-01-15 11:35 | NUR ---
RECEIVED CALL FROM DR. CASTORENA STATING THAT PT'S DARRELL CATH IS READY TO USE.
[2017-01-15] MEDS: FERRIC GLUCONATE 125 MG in NACL 0.9% 100 ML IV SCH ×2 (12:17→13:39)
--- NOTE | 2017-01-15 12:33 | NUR ---
P.T. NOTES HOLD P.T. TX PER NURSE REQUEST, HAD BEDSIDE HOSPITAL PROCEDURE, MEDICATED; FOLLOW UP TOMORROW. PVE
[2017-01-15] MEDS: MEROPENEM 500 MG in NACL 0.9% 50 ML IV SCH ×2 (12:54→21:09)
--- NOTE | 2017-01-15 13:00 | NUR ---
LEFT FOOT DIABETIC ULCER WOUND DRESSING CHANGED. LENGTH APPROXIMATELY 5.3 CM, WIDTH 2.5 CM, DEPTH TRACKS APPROXIMATELY 4 CM. RED GRANULAR BASE. 1/4 INCH IODOFORM PACKING WAS USED TO PACK WOUND WITH THERAHONEY AND PUT DRY DRESSING ON. ALSO REPOSITIONED PT. PT TOLERATED WELL. NO SOB OR ACUTE DISTRESS NOTED. NO COMPLAINT OF PAIN AT WOUND SITE. WILL CONTINUE TO MONITOR.
--- NOTE | 2017-01-15 13:10 | NUR ---
DR. GRIFFITH CAME TO SEE AND EXAMINE PT. WILL FOLLOW UP WITH FURTHER ORDERS.
--- NOTE | 2017-01-15 13:26 | NUR ---
CHECKED ON PT. SLEEPING COMFORTABLE AT THIS TIME. NO SOB OR ACUTE DISTRESS NOTED. WILL CONTINUE TO MONITOR.
--- NOTE | 2017-01-15 13:30 | NUR ---
CM NOTE SPOKE W/ KESHAV SANDERS FOR [facility]. MADE AWARE THAT PATIENT WILL BE RECEIVING HEMODIALYSIS TX TODAY. TRANSFER TO BE HELD AND REASSESS TOMORROW.
--- NOTE | 2017-01-15 14:19 | NUR ---
CM NOTE CONCURRENT REVIEW FAXED TO [facility] / FAX# [phone], ATTN: TOMMY #[phone]
--- NOTE | 2017-01-15 16:18 | NUR ---
PT SLEEPING COMFORTABLY. EASILY AROUSABLE. REPOSITIONED PT, CHANGED A NEW GOWN. NO SOB OR ACUTE DISTRESS. WILL CONTINUE TO MONITOR.
[2017-01-15 17:16] LABS: ANION GAP 16.6 (8-16); POTASSIUM 4.6 mmol/L (3.5-5.1)
--- NOTE | 2017-01-15 18:31 | NUR ---
PT RECEIVING HEMODIALYSIS AT BEDSIDE. PT SLEEPING COMFORTABLY. NO ACUTE DISTRESS OR SOB NOTED. CALL LIGHT WITHIN REACH. BED IN LOWEST POSITION. WILL CONTINUE TO MONITOR.
--- NOTE | 2017-01-15 19:50 | NUR ---
RECIEVED PT. LETHARGIC, RECIEVING HEMODIALYSIS AT PRESENT, TRA. LE EDEMATOUS, AWAITING FOR TRANSFER TO [facility] WHEN BED IS AVAILABLE
--- NOTE | 2017-01-15 20:29 | NUR ---
hemodialysis done, 1 litter out.
[2017-01-15] MEDS ORDERED: NYSTATIN POW 100 MU/GM 15 GM BTL TP SCH (21:00)
[2017-01-16] VITALS: BP 123/60
[2017-01-16] MEDS: ALBUTEROL SULFATE/IPRATROPIU 3 ML SOL IH SCH ×3 (01:15→13:07)
[2017-01-16 04:00] VITALS: BP 116/55
[2017-01-16 04:55] LABS: BASOPHILS # (AUTO) 0.1 K/uL (0.00-0.22); BASOPHILS % (AUTO) 1.5 % (0.0-2.0); EOSINOPHILS # (AUTO) 0.2 K/uL (0-0.4); EOSINOPHILS % (AUTO) 2.6 % (0.0-4.0); HEMATOCRIT 24.8 % (36-48); HEMOGLOBIN 7.8 g/dL (12.0-16.0); LYMPHOCYTES # (AUTO) 1.1 K/uL (2.5-16.5); LYMPHOCYTES % (AUTO) 11.8 % (20.5-51.1); MEAN CORPUSCULAR HEMOGLOBIN 26 pg (27-31); MEAN CORPUSCULAR HGB CONC 31 g/dL (33-37); MEAN CORPUSCULAR VOLUME 83 fL (80-94); MONOCYTES # (AUTO) 0.5 K/uL (0.8-1.0); MONOCYTES % (AUTO) 5.1 % (1.7-9.3); NEUTROPHILS # (AUTO) 7.5 K/uL (1.8-7.7); PLATELET COUNT (AUTO) 277 K/uL (140-450); RED CELL DISTRIBUTION WIDTH 16.9 % (11.6-13.7)
--- NOTE | 2017-01-16 05:12 | NUR ---
[facility] DONE, FOR TRANSFER TO TELEMETRY
--- NOTE | 2017-01-16 05:30 | NUR ---
TO ROOM 116 / BED REPORT TO BE GIVEN TO TELEMETRY NURSE
--- NOTE | 2017-01-16 06:20 | NUR ---
REPORT GIVEN TO MS BRYAN REYNOLDS FOR CONTINUITY OF CARE.
[2017-01-16 06:35] LABS: ANION GAP 16.5 (8-16); CARBON DIOXIDE 20.4 mmol/L (21-32); POTASSIUM 3.9 mmol/L (3.5-5.1)
--- NOTE | 2017-01-16 07:03 | NUR ---
MR FELICIA BERMAN , PT. SON, MESSAGE LEFT, PT. MOTHER WAS TRANSFER TO ROOM 116, AND HE CALL BACK
[2017-01-16] MEDS: COLISTIMETHATE SODIUM 150 MG VIAL IH SCH (07:10)
[2017-01-16 07:20] LABS: WHITE BLOOD COUNT (AUTO) 9.4 K/uL (4.8-10.8)
--- NOTE | 2017-01-16 07:25 | NUR ---
RECEIVED PT FROM STEPHANIE REYNOLDS AT BEDSIDE. PT IS A&OX4. PUT PT ON CONTACT PRECAUTION DUE TO CONSUMER SCIENCE TEACHER AND MDRO ON L LEG WOUND. PT HAS R IJ CENTRAL LINE AND L IJ DARRELL CATH. PT HAS A DONAHUE IN PLACE DRAINING 50ML OF YELLOW URINE AT THIS TIME. PT IS ON 3L O2, SAT 96%. CALL LIGHT WITHIN REACH. WILL CONTINUE TO MONITOR.
[2017-01-16] MEDS: BLOOD GLUCOSE MONITORING 1 DEV DEV FS SCH ×2 (07:30→12:17)
[2017-01-16 08:00] VITALS: BP 123/61
[2017-01-16 08:16] LABS: HEPATITIS A ANTIBODY IGM Negative (Negative); HEPATITIS B CORE AB TOTAL Negative (Negative); HEPATITIS B SURFACE AB Non Reactive (.); HEPATITIS B SURFACE ANTIGEN Negative (Negative)
[2017-01-16] MEDS: SKINTEGRITY HYDROGEL TP SCH (09:00)
--- NOTE | 2017-01-16 09:00 | NUR ---
PT IS RESTING COMFORTABLY IN BED. NO DISTRESS NOTED. BREATHING LABORED O2 SAT 96%. CALL LIGHT WITHIN REACH. WILL CONTINUE TO MONITOR.
[2017-01-16] MEDS: SODIUM BICARBONATE 650 MG TAB PO SCH (09:19)
[2017-01-16] MEDS: LACTOBACILLUS RHAMNOSUS GG 1 EACH CAP PO SCH (09:19)
[2017-01-16] MEDS: ASCORBIC ACID 500 MG TAB PO SCH (09:20)
[2017-01-16] MEDS: ATORVASTATIN 80 MG TAB PO SCH (09:20)
[2017-01-16] MEDS: ASPIRIN 81 MG TAB.CHEW PO SCH (09:20)
[2017-01-16] MEDS: MEROPENEM 500 MG in NACL 0.9% 50 ML IV SCH (09:59)
--- NOTE | 2017-01-16 10:30 | NUR ---
CM NOTE SPOKE W/ KESHAV SANDERS FOR [facility]. MADE AWARE THAT PATIENT RECEIVED HEMODIALYSIS TX YESTERDAY. CM TO SEARCH FOR BED AT [facility].
--- NOTE | 2017-01-16 11:45 | NUR ---
PT HAD SOUP IN BED. REFUSED TO EAT REST OF LUNCH. TOLERATED WELL. CALL LIGHT WITHIN REACH. WILL CONTINUE TO MONITOR.
[2017-01-16 12:00] VITALS: BP 129/63
[2017-01-16] MEDS ORDERED: APIXABAN 2.5 MG TAB PO SCH ×2 (12:00→21:00)
[2017-01-16] MEDS: THERAHONEY GEL 42.5 GM TP SCH (13:00)
--- NOTE | 2017-01-16 13:00 | NUR ---
PT STATED SHE HAS POOPED. TURNED AND CLEANED PT. PT DID NOT POOP, PT PASSED GAS ONLY. REPOSITIONED PT. CALL LIGHT WITHIN REACH. WILL CONTINUE TO MONITOR.
[2017-01-16] MEDS: NYSTATIN CRE 100 MU/GM 15 GM TUBE TP SCH (13:11)
[2017-01-16] MEDS: HYDRAGUARD CREAM TP SCH (13:11)
--- NOTE | 2017-01-16 13:14 | NUR ---
DECREASED FIO2 TO 2LPM NC RN AWARE
--- NOTE | 2017-01-16 13:41 | NUR ---
NOTE PATIENT TO BE TRANSFERRED TO [facility]. CTR[address]. ETA & NUMBER FOR TRANSPORT PENDING. DANUTA DAAM MADE AWARE. ACCEPTING MD: DR. AKBAR JUAN ([phone]). DR. CASTORENA MADE AWARE. AUTH# FOR [facility] TRANSPORT: [id number] Addendum: 01/16/17 at 1349 by Suleiman Rod RN PATIENT ON [facility] WILL CALL. Addendum: 01/16/17 at 1352 by Suleiman Rod RN CORRECTION ON BED#: [id number] NUMBER FOR RN REPORT: [phone]
[2017-01-16] MEDS ORDERED: MERO500P2 IV ×2 (14:23→14:25)
[2017-01-16] MEDS ORDERED: D50SYR IVP (14:26)
[2017-01-16] MEDS ORDERED: HUMSLIDE SUBQ (14:26)
[2017-01-16] MEDS ORDERED: DOCU-299 PO (14:26)
[2017-01-16] MEDS ORDERED: ACET-1182 PO (14:26)
[2017-01-16] MEDS ORDERED: IPRA3AMP IH ×2 (14:26)
[2017-01-16] MEDS ORDERED: ACET-9529 PO (14:26)
[2017-01-16] MEDS ORDERED: ASCO500T93 PO (14:26)
[2017-01-16] MEDS ORDERED: MORP2SOL18 IVP (14:26)
[2017-01-16] MEDS ORDERED: LACT10CA PO (14:26)
[2017-01-16] MEDS ORDERED: ONDA2SOL45 IM/IVP (14:26)
[2017-01-16] MEDS ORDERED: LIP80 PO (14:26)
[2017-01-16] MEDS ORDERED: BLOO1STR10 FS (14:26)
[2017-01-16] MEDS ORDERED: MYCC TP (14:26)
[2017-01-16] MEDS ORDERED: SODI650T2 PO (14:26)
[2017-01-16] MEDS ORDERED: ASPI81CT95 PO (14:26)
[2017-01-16] MEDS ORDERED: APIX2.5 PO (14:26)
[2017-01-16] MEDS ORDERED: COLI150P4 IH (14:26)
[2017-01-16] MEDS ORDERED: [UNRECOGNIZED DRUG - CODE] IR (14:27)
--- NOTE | 2017-01-16 14:37 | NUR ---
01/16/17 RD FOLLOW-UP ASSESSMENT COMPLETED PLEASE REFER TO NUTRITION ASSESSMENT UNDER CARE ACTIVITY FOR ESTIMATED NUTRITIONAL NEEDS. 1. CONTINUE CONSISTENT CHO 60 GRAMS DIET 2. CONTINUE VITAMIN C SUPPLEMENTATION (500 MG/2X DAILY) 3. ADD DIET HEALTH SHAKE TID 4. RD TO FOLLOW-UP 2-3 DAYS, HIGH RISK KARLI FUENTES, RYAN
--- NOTE | 2017-01-16 15:30 | NUR ---
CM NOTE CONCURRENT REVIEW FAXED TO [facility] / FAX# [phone], ATTN: TOMMY #[phone]
--- NOTE | 2017-01-16 15:40 | NUR ---
GAVE REPORT TO ANTIONE REYNOLDS AT [facility].
--- NOTE | 2017-01-16 15:45 | NUR ---
PT TRANSPORTED BY [facility]. TO [facility] ROOM 376B, DR. JUAN ADMITTING. PT IN STABLE CONDITION.
--- NOTE | 2017-01-16 16:15 | NUR ---
PHYSICAL THERAPY CO-SIGN The Physical Therapy Progress Notes documented by [employer] have been reviewed. Reviewed/Co-Signed by: Cherrie Betancourt PT Documentation Done by:BING VALENTINO FISHING TACKLE REPAIRER Addendum: 01/16/17 at 1615 by Cherrie Betancourt PT Amended: Links added.
== END 2017-01-16 15:45 | disposition short-term general hospital (02) | DRG 853 ==
LOC: MED 16:09 → MIC 18:30 → MTU 01-16 06:40
PROVIDERS: ADMIT Family Medicine; ATTEND Family Medicine
PROC: 0LBW0ZZ Excision of Left Foot Tendon, Open Approach (ICD-10-PCS; 2017-01-10)
PROC: 02HV33Z Insertion of Infusion Device into Superior Vena Cava, Percutaneous Approach (ICD-10-PCS; principal; 2017-01-11)
PROC: B548ZZA Ultrasonography of Superior Vena Cava, Guidance (ICD-10-PCS; 2017-01-11)
PROC: 5A1D00Z (ICD-10-PCS; 2017-01-15)
PROC: 0JH63XZ Insertion of Tunneled Vascular Access Device into Chest Subcutaneous Tissue and Fascia, Percutaneous Approach (ICD-10-PCS; 2017-01-16)
PROC: 02HV33Z Insertion of Infusion Device into Superior Vena Cava, Percutaneous Approach (ICD-10-PCS; 2017-01-16)
DX: A40.9 Streptococcal sepsis, unspecified (principal); R65.21 Severe sepsis with septic shock; N17.0 Acute kidney failure with tubular necrosis; J96.01 Acute respiratory failure with hypoxia; J69.0 Pneumonitis due to inhalation of food and vomit; D68.59 Other primary thrombophilia; E43 Unspecified severe protein-calorie malnutrition; N18.4 Chronic kidney disease, stage 4 (severe); I13.10 Hypertensive heart and chronic kidney disease without heart failure, with stage 1 through stage 4 chronic kidney disease, or unspecified chronic kidney disease; L03.116 Cellulitis of left lower limb; N39.0 Urinary tract infection, site not specified; E87.1 Hypo-osmolality and hyponatremia; Z68.43 Body mass index [BMI] 50.0-59.9, adult; E11.621 Type 2 diabetes mellitus with foot ulcer; L97.529 Non-pressure chronic ulcer of other part of left foot with unspecified severity; E66.01 Morbid (severe) obesity due to excess calories; E11.22 Type 2 diabetes mellitus with diabetic chronic kidney disease; E11.65 Type 2 diabetes mellitus with hyperglycemia; E11.51 Type 2 diabetes mellitus with diabetic peripheral angiopathy without gangrene; B35.1 Tinea unguium; E83.42 Hypomagnesemia; E87.5 Hyperkalemia; I48.91 Unspecified atrial fibrillation; G89.29 Other chronic pain; Z90.49 Acquired absence of other specified parts of digestive tract; Z79.4 Long term (current) use of insulin; Z79.01 Long term (current) use of anticoagulants; Z86.14 Personal history of Methicillin resistant Staphylococcus aureus infection
CPT/HCPCS: 36415; 36600; 71010; 76700; 76881; 78315; 80048; 80053; 80202; 80305; 81001; 82140; 82150; 82272; 82607; 82728; 82746; 82803; 82948; 83036; 83540; 83605; 83690; 83735; 83880; 84100; 84436; 84439; 84443; 84479; 84484; 85025; 85045; 85610; 85730; 86704; 86706; 86708; 86709; 86803; 87040; 87070; 87075; 87077; 87081; 87086; 87186; 87205; 87340; 90935; 93005; 93925; 93970; 94640; 96374; 97110; 97140; 97530; 99291; A6248; C1758; J0456; J0696; J0770; J1170; J1580; J1642; J1644; J1815; J1940; J2060; J2185; J2270; J2405; J2543; J2916; J3370; J3475; J3490; J7030; J7060; J7613; J7620; Q0092